=== PATIENT | male | born 1960 | race Caucasian/White ===

== ENCOUNTER → 2019-05-25 17:59 | Outpatient (CLI) | payer BC, SELFPAY ==
--- NOTE | ~2019-05-25 | XR_ITS ---
XR abdomen/kub 1V 05/25/2019 18:14 Indication: Bilateral kidney stones Procedure: KUB Comparison: Comparison to multiple prior studies sequentially, with oldest reviewed study dated 07/03. Findings: There are multiple left renal stones. Bowel pattern is nonobstructive. Lung bases unremarka ble. There is a right pelvic phlebolith. No acute osseous abnormality. Impression: 1: Left nephrolithiasis. Reviewed, dictated and finalized at location A. Impression: 1: Left nephrolithiasis.
== END ==
PROVIDERS: Visit Provider Urology
DX: N20.0 Calculus of kidney (principal)
CPT/HCPCS: 74018

== ENCOUNTER 2020-01-25 19:29 | Inpatient (IN) | payer BC, SELFPAY ==
--- NOTE | ~2020-01-25 | XR_ITS ---
EXAMINATION: XR abdomen/kub 1V DATE: 01/26/2020 11:07 INDICATION: Left renal stone. TECHNIQUE: A supine view of the abdomen on 2 radiographs was obtained. COMPARISON: CT abdomen and pelvis 01/25/2020 FINDINGS: There are no dilated loops of bowel. There is a left internal ureteral stent in expected po sition. There is a phlebolith in right pelvis. There are multiple ill-defined stones in left kidney. IMPRESSION: 1. Left kidney stones. 2. Left internal ureteral stent in expected position. Reviewed, dictated and finalized at location B. SIGMA BLACK TRAINER
--- NOTE | ~2020-01-25 | XR_ITS ---
EXAMINATION: XR retrograde pyelo w/stent LT INDICATION: Left flank pain and left ureteral stone TECHNIQUE: 84 intraoperative fluoroscopic images are submitted for review. Total fluoroscopic time is 76.8 seconds. COMPARISON: CT of the same day FINDINGS: There is mild left hydronephrosis. A left internal ureteral stent coils in the renal pelvis on the final sequence of images. IMPRESSION: 1. Left internal ureteral stent coiling in the left renal pelvis on final images. Please refer to pro cedure note for full details. Reviewed, dictated and finalized at location A. GRAM AND LETTER PASTER IMPRESSION: 1. Left internal ureteral stent coiling in the left renal pelvis on final image s. Please refer to procedure note for full details.
--- NOTE | ~2020-01-25 | CT_ITS ---
EXAMINATION: CT abdomen pelvis wo con DATE: 01/25/2020 20:34 INDICATION: Left flank pain TECHNIQUE: Computed tomography (CT) of the abdomen and pelvis was performed without intravenous contr ast. The dose-length product (DLP) was 300.21 mGy-cm. Automated exposure control and iterative recons truction technique were employed. COMPARISON: 12/14/2016 FINDINGS: Minimal dependent atelectasis is present in the lung bases. The heart size is normal. Chron ic, stable nodules of the medial left lower lobe are consistent with old granulomatous disease. The l iver, spleen, pancreas, gallbladder, and adrenal glands are normal. The right kidney is unremarkable. There is a 7 mm stone in the left proximal ureter which causes mild left hydronephrosis. Nonobstruct ing stones of the left kidney lower pole measure up to 6 mm. Cysts of the left kidney measure up to 3 .8 cm in the upper pole. No pathologically enlarged abdominal or pelvic lymph nodes are identified. T here is no free intraperitoneal gas or evidence of bowel obstruction. The appendix is normal. There i s mild lumbar spondylosis. There is mild wall thickening of the bladder which could reflect cystitis or chronic outlet obstruction. IMPRESSION: 1. 7 mm stone of the left proximal ureter causing mild left hydroureteronephrosis. 2. Nonobstructing left nephrolithiasis. Reviewed, dictated and finalized at location A. SIGNAL WORKER IMPRESSION: 1. 7 mm stone of the left proximal ureter causing mild left hydroureteronephros is. 2. Nonobstructing left nephrolithiasis.
[2020-01-25 19:39] VITALS: BP 115/69; PULSE 111; RESP 14; TEMP 36.4; O2SAT 97
[2020-01-25 19:55] LABS: Basophils Percent Auto 0.2 % (0.2-1.2); Hematocrit 41.1 % (42.0-52.0); Hemoglobin 14.4 g/dL (14.0-18.0); Immature Granulocyte Absolute 0.18 K/mm3 (0.00-0.031); Immature Granulocyte Percent A 0.8 % (0-0.5); Lymphocytes Percent Auto 3.1 % (18.3-44.2); Mean Corpuscular Hemoglobin 30.8 pg (26-34); Mean Platelet Volume 9.4 fl (7.4-10.4); Monocytes Absolute Auto 1.5 K/mm3 (0.1-0.6); Monocytes Percent Auto 6.5 % (2.6-8.5); Neutrophils Absolute Auto 20.4 K/mm3 (1.3-6.7); Neutrophils Percent Auto 89.4 % (45.5-73.1); Platelet Count Result 192 k/mm3 (150-375); Red Blood Count 4.67 M/mm3 (4.6-6.20); White Blood Count 22.8 K/mm3 (4.5-10.0)
[2020-01-25 20:05] LABS: Alanine Aminotransferase 19 U/L (4-50); Albumin Level 4.2 g/dL (3.5-5.1); Alkaline Phosphatase 68 U/L (38-126); Anion Gap 10 mmol/L (8-16); Aspartate Amino Transferase 25 U/L (17-59); Bilirubin,Total 1.1 mg/dL (0.2-1.3); Blood Urea Nitrogen 24 mg/dL (9-20); Calcium 9.1 mg/dL (8.4-10.2); Carbon Dioxide 22 mmol/L (22-30); Chloride 101 mmol/L (98-107); Estimated CRCL calculation 30 ml/min; Estimated Glomerular Filt Rate 24; Glucose 136 mg/dL (75-110); Lipase 45 U/L (23-300); Potassium 3.9 mmol/L (3.4-5.0); Sodium 133 mmol/L (137-145)
[2020-01-25 20:11] LABS: Add Urine Microscopic? YES; Appearance Urine Cloudy (Clear); Bacteria Urine Trace /hpf; Bilirubin Urine Negative (Negative); Blood Urine 3+ (Negative); Color Urine Yellow (Yellow); Glucose Urine UA Negative (Negative); Ketones Urine 1+ mg/dL (Negative); Leukocyte Esterase Ur 3+ LEU/UL (Negative); Mucus Urine Heavy /lpf; Nitrate Urine Negative (Negative); Protein Urine 2+ mg/dL (Negative); RBC Urine >75 /hpf (0-2); Specific Grav Ur 1.028 (1.001-1.035); Squamous Epithelial Cell Urine Rare /hpf (Few); Urobilinogen Urine Negative mg/dL (<2.0); WBC Clumps Urine Present /HPF; WBC Urine >75 /hpf
[2020-01-25] MEDS: SODIUM CHLORIDE 0.9% IV 1,000 ML 999 ML IV CONT (20:36)
--- NOTE | 2020-01-25 20:36 | ED.GENADULT ---
HPI - General Adult General Chief complaint: Urogenital-Male Stated complaint: pyelonephritis Time Seen by Provider: 01/25/20 19:59 History of Present Illness HPI narrative: Patient is a 59-year-old male who presents ER with left-sided flank pain. Began 2 days ago. Has been trying to tough it out. Reports he developed a fever today while [facility] and was referred here. No pain at this time. Reports he was having chills last night. He reports he also developed dysuria today. He has having urinary frequency. Has history of kidney stones. He was swabbed for Covid at the urgent care prior to arrival and it was negative. Related Data Home Medications Medication Instructions Recorded Confirmed testosterone cypionate 200 mg/mL 200 mg IM [id number] ml 07/24/19 01/25/20 intramuscular oil Allergies Allergy/AdvReac Type Severity Reaction Status Date / Time Cephalosporins Allergy Unknown Unknown Verified 01/25/20 20:54 Review of Systems Review of Systems: All systems reviewed & are unremarkable except as noted in HPI and below Constitutional: Constitutional: Reports chills, Reports fever(s) and Denies weakness ENT: Denies nasal congestion and Denies sore throat Respiratory: Respiratory: Denies cough and Denies dyspnea Gastrointestinal: Gastrointestinal: Denies abdominal pain, Denies nausea and Denies vomiting Genitourinary: Genitourinary: Reports dysuria and Reports urinary frequency [facility] Past Medical History Medical History (Updated 01/26/20 @ 02:01 by Moo Pepe MD) History of chemotherapy Testicular cancer Surgical History Surgical History History of orchiectomy [place] teeth removed Family History Family History Father Diabetes mellitus Hypertension Family history of cardiovascular disease Family history of coronary artery disease Mother Diabetes mellitus Hypertension Family history of cardiovascular disease Family history of coronary artery disease Grandparent Family history of cardiovascular disease Family history of pancreatic cancer Family history of primary malignant neoplasm of liver Other Family history of malignant neoplasm of breast in first degree relative Social History Social History Smoking status: Never smoker Second hand tobacco smoke exposure: No Smoking end date: 01/01/85 Alcohol intake: never Substance use: never Substance use type: does not use Gender identity (if verbalized by the patient): Male Spiritual care concerns: No Agree to blood products: Yes Exam Narrative: Exam Narrative: GENERAL: Well-appearing, well-nourished, and in no acute distress. HEAD: Normocephalic, atraumatic. CHEST: Clear to auscultation. No respiratory distress. HEART: Regular rate and rhythm. Normal peripheral pulses. ABDOMEN: Soft, nontender, nondistended. EXTREMITIES: Normal range of motion. No edema. SKIN: Warm, dry, no rash. NEURO: Alert and oriented x3. PSYCH: Normal mood and affect. Course Course Emergency Course: Patient will go to the OR this evening with urology. Patient received Levaquin x1 down here. He is to remain n.p.o. Vital Signs Vital signs: Vital Signs Temperature 97.5 F L 01/25/20 19:39 Pulse Rate 111 H 01/25/20 19:39 Respiratory Rate 14 01/25/20 19:39 Blood Pressure 115/69 01/25/20 19:39 Pulse Oximetry 97 01/25/20 19:39 Temperature 98.0 F 01/26/20 01:15 Pulse Rate 99 01/26/20 01:15 Respiratory Rate 20 01/26/20 01:15 Blood Pressure 108/65 01/26/20 01:15 Pulse Oximetry 97 01/26/20 01:15 Medical Decision Making Vital Signs Vital Signs: Vital Signs Temperature 97.5 F L 01/25/20 19:39 Pulse Rate 111 H 01/25/20 19:39 Respiratory Rate 14 01/25/20 19:39 Blood Pressure 115/69 01/25/20 19:39 Pulse Oxim
[2020-01-25 21:03] LABS: Lactic Acid Reflex 1.2 mmol/L (0.7-2.1)
[2020-01-25] MEDS: levoFLOXacin 500 MG/D5W 100 ML 500 MG/100 ML BAG 100 MG IVPB (21:30)
--- NOTE | 2020-01-25 22:06 | WPDURCON ---
Assessment and Plan Assessment and plan (1) Calculus of ureter: Code(s): N20.1 - Calculus of ureter Status: Acute Assessment and Plan: 59 yo male with left 7 mm ureter stone, hydro and infection POA #1 ureter stone plan on emergent cysto RPG and left stent placement. risks/benefit/nature of procedure and complications reviewed. risks including but not limited to bleeding, infection, trauma to surrounding structures need for definitive stone therapy in the future, the side effects and temporary nature of the stent were emphasized (irritative voiding symptoms , pain similar to stone pain), in addition to anesthesia and positioning complications of [place], stroke, DVT, PE, disability and other unforeseen complications were reviewed. Furthermore we reviewed small risk of inability to place stent and need for PCN by IR. He voiced understanding, all ? answered to his satisfaction in layman's terms (2) UTI (urinary tract infection): Code(s): N39.0 - Urinary tract infection, site not specified Status: Acute Assessment and Plan: on levaquin, dose renally q 48 hours (3) Hydronephrosis concurrent with and due to calculi of kidney and ureter: Code(s): N13.2 - Hydronephrosis with renal and ureteral calculous obstruction Status: Acute Assessment and Plan: he will need definitive stone therapy after infection has cleared (4) MERE (acute kidney injury): Code(s): N17.9 - Acute kidney failure, unspecified Status: Acute Assessment and Plan: likely due to obstruction, infection and NSAID's avoid nephrotoxins, trend serial Cr Urology Consult Note HPI Date Seen: 01/25/20 Primary Care Provider: ROLL RECLAIMER PHYSICIAN Consult Narrative Narrative: Dominic Betts is a 59 year old male with history or kidney stones(normally sees Dr High), who presents to ER after going to [facility] with abdominal pain, fever and chills. Pt with fever of 101 at home. + nausea, no vomiting. he had pain that started in the left kidney 3 days prior, which improved with Tylenol and ibuprofen. No hematuria, + dysuria. he has cephalosporin allergy which causes c diff and diarrhea. He had a CT in the ER which showed 7 mm left prox ureter stones and hydro, some non obs left renal stones as well. Cr elevated at 2.7 and wbc 22. Review of Systems Constitutional: Constitutional: Reports no additional constitutional complaints, Reports fever(s), Denies snoring and Denies weakness Eyes: Eyes: Reports no additional eye complaints ENT: Reports system reviewed and no additional complaints, except as documented, Denies dysphagia, Denies dizziness, Denies dry mouth and Denies ear discharge Respiratory: Respiratory: Reports no additional respiratory complaints, Denies hemoptysis, Denies snoring and Denies wheezing Gastrointestinal: Gastrointestinal: Reports as per HPI, Reports no additional gastrointestinal complaints, Denies dysphagia, Denies loose stools and Denies nausea Genitourinary: Genitourinary: Reports no additional male genitourinary complaints and Reports as per HPI Musculoskeletal: Musculoskeletal: Reports no additional musculoskeletal complaints and Reports as per HPI Integumentary/Breasts: Skin/Breast: Reports system reviewed and no additional complaints, except as docu and Reports as per HPI Neurologic: Reports system reviewed and no additional complaints, except as documented, Reports as per HPI, Denies confusion, Denies dizziness, Denies memory loss and Denies weakness Psychiatric: Psychiatric: Reports no additional psychiatric complaints, Reports as per HPI, Denies confusion, Denies memory loss and Denies mood swings Endocrine: Endocrine: Reports no additional endocrine complaints Hematologic/Lymphatic: Hematologic/Lymphatic: Reports no additional hematologic/lymphatic complaints and Reports as per HPI Allergic/Immunologic: Allergic/Immunologic: Reports no additional allergic/immunologic comp
--- NOTE | 2020-01-25 22:21 | WPDANESEPP ---
Anes - Eval Pre Procedure Procedure: Operation Date: 01/25/20 22:15 Proposed Procedures p Cystoscopy, Bladder Stones(Left) - Jayjay Moore MD Date/Time: 01/25/20 22:21 Pre Op Diagnosis: pyelonephritis Patient Data Age: 59 Gender: M Height: 1.83 m Weight: 96 kg Last Vital Signs Temp 36.4 C L 01/25/20 19:39 Pulse 111 H 01/25/20 19:39 Resp 14 01/25/20 19:39 BP 115/69 01/25/20 19:39 Pulse Ox 97 01/25/20 19:39 Allergies Allergy/AdvReac Type Severity Reaction Status Date / Time Cephalosporins Allergy Unknown Unknown Verified 01/25/20 20:54 Home Medications Medication Instructions Recorded Confirmed Type blood pressure monitor #1 each 06/11/19 07/24/19 Rx testosterone cypionate 200 mg/mL 200 mg IM [id number] ml 07/24/19 01/25/20 History intramuscular oil lisinopril 20 mg tablet 20 mg PO DAILY #90 tablet 08/04/19 01/25/20 Rx Laboratory Tests 01/25/20 01/25/20 01/25/20 19:46 19:46 19:57 WBC 22.8 K/mm3 H K/mm3 (4.5-10.0) RBC 4.67 M/mm3 M/mm3 (4.6-6.20) Hgb 14.4 g/dL g/dL (14.0-18.0) Hct 41.1 % L % (42.0-52.0) MCV 88.0 fl fl (80-100) MCH 30.8 pg pg (26-34) MCHC 35.0 g/dl g/dl (32-36) RDW 12.0 % % (11.5-14.5) Plt Count 192 k/mm3 k/mm3 (150-375) MPV 9.4 fl fl (7.4-10.4) Immature Gran % (Auto) 0.8 % H % (0-0.5) Neut % (Auto) 89.4 % H % (45.5-73.1) Lymph % (Auto) 3.1 % L % (18.3-44.2) [place] % (Auto) 6.5 % % (2.6-8.5) Eos % (Auto) 0.0 % % (0-4.4) Baso % (Auto) 0.2 % % (0.2-1.2) Lymph # (Auto) 0.70 K/mm3 L K/mm3 (0.9-3.2) [place] # (Auto) 1.5 K/mm3 H K/mm3 (0.1-0.6) Eos # (Auto) 0.0 K/mm3 K/mm3 (0-0.3) Baso # (Auto) 0.0 K/mm3 K/mm3 (0.0-0.1) Abs Immat Gran (auto) 0.18 K/mm3 H K/mm3 (0.00-0.031) Absolute Neuts (auto) 20.4 K/mm3 H K/mm3 (1.3-6.7) Absolute Nucleated RBC 0.0 K/mm3 K/mm3 (0.0-0.012) Nucleated RBC % 0.0 % % (0.0-0.2) Sodium 133 mmol/L L mmol/L (137-145) Potassium 3.9 mmol/L mmol/L (3.4-5.0) Chloride 101 mmol/L mmol/L (98-107) Carbon Dioxide 22 mmol/L mmol/L (22-30) Anion Gap 10 mmol/L mmol/L (8-16) BUN 24 mg/dL H mg/dL (9-20) Creatinine 2.70 mg/dL H mg/dL (0.7-1.3) Estim Creat Clear Calc 30 ml/min ml/min Estimated GFR 24 L (59 - ) Glucose 136 mg/dL H mg/dL (75-110) Lactic Acid Calcium 9.1 mg/dL mg/dL (8.4-10.2) Total Bilirubin 1.1 mg/dL mg/dL (0.2-1.3) AST 25 U/L U/L (17-59) ALT 19 U/L U/L (4-50) Alkaline Phosphatase 68 U/L U/L (38-126) Total Protein 7.0 g/dL g/dL (6.3-8.2) Albumin 4.2 g/dL g/dL (3.5-5.1) Lipase 45 U/L U/L (23-300) Urine Color Yellow (Yellow) Urine Appearance Cloudy H (Clear) Urine pH 5.0 (5.0-9.0) Ur Specific [place] 1.028 (1.001-1.035) Urine Protein 2+ mg/dL H mg/dL (Negative) Urine Glucose (UA) Negative mg/dL mg/dL (Negative) Urine Ketones 1+ mg/dL H mg/dL (Negative) Ur Blood (Man) 3+ H (Negative) Urine Nitrate Negative (Negative) Urine Bilirubin Negative (Negative) Urine Urobilinogen Negative mg/dL mg/dL (<2.0) Leukocyte Esterase Rfl 3+ LUIS/UL H LUIS/UL (Negative) Urine RBC >75 /hpf H /hpf (0-2) Urine WBC >75 /hpf H /hpf Urine WBC Clumps Present /HPF H /HPF (None) Ur Squamous Epith Cells Rare /hpf /hpf (Few) Urine Bacteria Trace /hpf /hpf Urine Mucus Heavy /lpf H /lpf 01/25/20 20:47 WBC RBC Hgb Hct MCV
[2020-01-25 22:25] VITALS: BP 134/78; PULSE 125; RESP 18; TEMP 38.1; O2SAT 100
--- NOTE | 2020-01-25 22:40 | WPDANESEPPF ---
Anes - Initial Pre Proc Eval Procedure: Operation Date: 01/25/20 22:15 Proposed Procedures p Cystoscopy, Bladder Stones(Left) - Jayjay Moore MD Date/Time: 01/25/20 22:40 Surgeon: Jayjay Moore MD Pre Op Diagnosis: pyelonephritis Patient Data Age: 59 Gender: M Height: 6 ft Weight: 96 kg Last Vital Signs Temp 38.1 C H 01/25/20 22:25 Pulse 125 H 01/25/20 22:25 Resp 18 01/25/20 22:25 BP 134/78 01/25/20 22:25 Pulse Ox 100 01/25/20 22:25 Allergies Allergy/AdvReac Type Severity Reaction Status Date / Time Cephalosporins Allergy Unknown Unknown Verified 01/25/20 20:54 Home Medications Medication Instructions Recorded Confirmed Type blood pressure monitor #1 each 06/11/19 07/24/19 Rx testosterone cypionate 200 mg/mL 200 mg IM [id number] ml 07/24/19 01/25/20 History intramuscular oil lisinopril 20 mg tablet 20 mg PO DAILY #90 tablet 08/04/19 01/25/20 Rx Laboratory Tests 01/25/20 01/25/20 01/25/20 19:46 19:46 19:57 WBC 22.8 K/mm3 H K/mm3 (4.5-10.0) RBC 4.67 M/mm3 M/mm3 (4.6-6.20) Hgb 14.4 g/dL g/dL (14.0-18.0) Hct 41.1 % L % (42.0-52.0) MCV 88.0 fl fl (80-100) MCH 30.8 pg pg (26-34) MCHC 35.0 g/dl g/dl (32-36) RDW 12.0 % % (11.5-14.5) Plt Count 192 k/mm3 k/mm3 (150-375) MPV 9.4 fl fl (7.4-10.4) Immature Gran % (Auto) 0.8 % H % (0-0.5) Neut % (Auto) 89.4 % H % (45.5-73.1) Lymph % (Auto) 3.1 % L % (18.3-44.2) [place] % (Auto) 6.5 % % (2.6-8.5) Eos % (Auto) 0.0 % % (0-4.4) Baso % (Auto) 0.2 % % (0.2-1.2) Lymph # (Auto) 0.70 K/mm3 L K/mm3 (0.9-3.2) [place] # (Auto) 1.5 K/mm3 H K/mm3 (0.1-0.6) Eos # (Auto) 0.0 K/mm3 K/mm3 (0-0.3) Baso # (Auto) 0.0 K/mm3 K/mm3 (0.0-0.1) Abs Immat Gran (auto) 0.18 K/mm3 H K/mm3 (0.00-0.031) Absolute Neuts (auto) 20.4 K/mm3 H K/mm3 (1.3-6.7) Absolute Nucleated RBC 0.0 K/mm3 K/mm3 (0.0-0.012) Nucleated RBC % 0.0 % % (0.0-0.2) Sodium 133 mmol/L L mmol/L (137-145) Potassium 3.9 mmol/L mmol/L (3.4-5.0) Chloride 101 mmol/L mmol/L (98-107) Carbon Dioxide 22 mmol/L mmol/L (22-30) Anion Gap 10 mmol/L mmol/L (8-16) BUN 24 mg/dL H mg/dL (9-20) Creatinine 2.70 mg/dL H mg/dL (0.7-1.3) Estim Creat Clear Calc 30 ml/min ml/min Estimated GFR 24 L (59 - ) Glucose 136 mg/dL H mg/dL (75-110) Lactic Acid Calcium 9.1 mg/dL mg/dL (8.4-10.2) Total Bilirubin 1.1 mg/dL mg/dL (0.2-1.3) AST 25 U/L U/L (17-59) ALT 19 U/L U/L (4-50) Alkaline Phosphatase 68 U/L U/L (38-126) Total Protein 7.0 g/dL g/dL (6.3-8.2) Albumin 4.2 g/dL g/dL (3.5-5.1) Lipase 45 U/L U/L (23-300) Urine Color Yellow (Yellow) Urine Appearance Cloudy H (Clear) Urine pH 5.0 (5.0-9.0) Ur Specific [place] 1.028 (1.001-1.035) Urine Protein 2+ mg/dL H mg/dL (Negative) Urine Glucose (UA) Negative mg/dL mg/dL (Negative) Urine Ketones 1+ mg/dL H mg/dL (Negative) Ur Blood (Man) 3+ H (Negative) Urine Nitrate Negative (Negative) Urine Bilirubin Negative (Negative) Urine Urobilinogen Negative mg/dL mg/dL (<2.0) Leukocyte Esterase Rfl 3+ LUIS/UL H LUIS/UL (Negative) Urine RBC >75 /hpf H /hpf (0-2) Urine WBC >75 /hpf H /hpf Urine WBC Clumps Present /HPF H /HPF (None) Ur Squamous Epith Cells Rare /hpf /hpf (Few) Urine Bacteria Trace /hpf /hpf Urine Mucus Heavy /lpf H /lpf 01/25/20 20:47 WBC RBC
--- NOTE | 2020-01-25 23:13 | P.OP_ITS ---
Procedure Note - Detailed Date of procedure: 01/25/20 Pre-op diagnosis: pyelonephritis Surgeon: Jayjay Moore MD Preoperative diagnosis: left ureter stone, renal failure, UTI, hydronephrosis Postoperative diagnosis: same Procedure: cystoscopy, left retrograde pyelogram, left ureter stent placement specimens: left renal pelvis urien for culture Findings: expected implants: left 6 fr variable length stent EBL: none Drains: 16 Fr almonte Description of procedure: Patient was brought back to to the OR, he was given general anesthesia via LMA. He was prepped and draped in standard fashion in the dorsal lithotomy position with Betadine to the genitalia. He received preoperative IV antibiotics. After appropriate time out, oceanic sciences professor fluoroscopy was obtained and showed stone in left mid ureter. 22 Fr cystoscope was placed into the urethra, prostate was mildly enlarged, endoscopy of the bladder revealed dark urine, no tumors , lesions, masses or stones seen in the bladder. He had single orthotopic ureter orifices. 5 Fr open ended cath was inserted into the left ureteral orifice and a Bentson wire was navigated past the stone under fluoroscopy. 5 Fr cath advanced to the renal pelvis and a hydronephrotic drip of urine was obtained. this was sent off the field for culture. A gentle retrograde pyelogram was obtained showing the outline of the collecting system, and moderate hydronephrosis. Bentson wire was replaced, and a 6 Fr variable length stent was placed, good curl was seen both fluoroscopically in the kidney and both fluoroscopically and endoscopically in the bladder. 16 Fr Almonte was placed to maximally drain his urinary system. He was awoken and transferred to recovery in guarded condition. His family was notified via telephone. he will be admitted to the ICU/IMCU given his pressor requirement. He will require stone treatment in the future when his infection has cleared.
[2020-01-25 23:17] VITALS: BP 94/56; PULSE 101; RESP 20; TEMP 36.9; O2SAT 99
[2020-01-25] MEDS: LACTATED RINGERS 1,000 ML 30 ML IV CONT ×2 (23:17)
[2020-01-25 23:30] VITALS: BP 102/59; PULSE 98; RESP 16; O2SAT 100
[2020-01-25 23:45] VITALS: BP 101/62; PULSE 104; RESP 14; O2SAT 100
[2020-01-26] VITALS (22 sets, daily range): BP systolic 91–130; BP diastolic 49–80; PULSE 95–123; RESP 14–20; TEMP 36.3–39.2; O2SAT 96–99; BMI 29.2
--- NOTE | 2020-01-26 01:35 | ADMGEN ---
This patient, Dominic Betts, was admitted to IMU Room 202-. Patient/family oriented to hospital policies and general routines including ID bracelet, bed and alarms, visiting hours, pain management, procedures, bathroom and other care routines, personal items, smoking policy, room service/diet, and visiting hours. Information on how to activate the Rapid Response Team has been discussed. Patient/Family are encouraged to report perceived risks to care and to ask questions if they do not understand what they are told or what they should do.
[2020-01-26 04:55] LABS: Hematocrit 36.4 % (42.0-52.0); Hemoglobin 12.6 g/dL (14.0-18.0)
[2020-01-26 05:13] LABS: Anion Gap 7 mmol/L (8-16); Blood Urea Nitrogen 29 mg/dL (9-20); Calcium 8.1 mg/dL (8.4-10.2); Carbon Dioxide 24 mmol/L (22-30); Chloride 102 mmol/L (98-107); Estimated CRCL calculation 31 ml/min; Estimated Glomerular Filt Rate 25; Glucose 172 mg/dL (75-110); Potassium 4.1 mmol/L (3.4-5.0); Sodium 133 mmol/L (137-145)
[2020-01-26] MEDS: ONDANSETRON INJ 4 MG/2 ML VIAL IV PUSH ×2 (06:49→17:51)
--- NOTE | 2020-01-26 10:01 | WPDUROPN2 ---
Progress Note: A&P Assessment and Plan (1) Ureterolithiasis: Code(s): N20.1 - Calculus of ureter Status: Acute Assessment and Plan: Will plan definitive stone management once infection has cleared as an outpatient. No further surgical planning at this time. Obtain KUB for surgcial planning. (2) UTI (urinary tract infection): Code(s): N39.0 - Urinary tract infection, site not specified Status: Acute Assessment and Plan: Started Bactrim, will continue and tailor to culture results. Patient will stay until cultures are back, will continue to monitor. (3) Calculus of ureter: Code(s): N20.1 - Calculus of ureter Status: Acute (4) Hypertension: Qualifiers: Hypertension type: essential hypertension Qualified Code(s): I10 - Essential (primary) hypertension Code(s): I10 - Essential (primary) hypertension Status: Acute Assessment and Plan: Patient is hypotensive at this time, will continue to hold Lisinopril. Push oral fluids. (5) Hydronephrosis concurrent with and due to calculi of kidney and ureter: Code(s): N13.2 - Hydronephrosis with renal and ureteral calculous obstruction Status: Acute Assessment and Plan: Keep stent in place at this time until follow up surgery. Paitent is having stent pain and bladder spasms. Ok to give Levsin PRN. Will plan to remove almonte and do voiding trial before he leaves. (6) MERE (acute kidney injury): Code(s): N17.9 - Acute kidney failure, unspecified Status: Acute Assessment and Plan: Improving slowly, will watch, stent is in place and will help to improve MERE. (7) Nausea: Code(s): R11.0 - Nausea Status: Acute Assessment and Plan: Take Ondansetron PRN. Subjective Subjective Date/Time Seen: 01/26/20 10:01 POD #1 Cystoscopy, left stent placement, retrograde pyelogram Review of Systems Cardiovascular: Cardiovascular: Denies chest pain Gastrointestinal: Gastrointestinal: Reports abdominal pain (stent pain), Reports nausea and Denies vomiting Genitourinary: Genitourinary: Reports hematuria, Denies genital pain, Denies dysuria and Reports flank pain Exam Resp: Effort & Inspection: normal respiratory effort Cardio: Rate: tachycardic GI: GI Palp: Yes abdominal tenderness and Yes Soft to palpation : General: Yes CVA tenderness on the left Urinary Catheter: Urinary Catheter: patent and draining, urine cloudy, urine dark and urine pink Extrem: General: no edema Objective Data Vital Signs Vital Signs: Vital Signs - 24 hr 01/25/20 19:39 01/25/20 22:25 01/25/20 23:17 Temperature 97.5 F L 100.6 F H 98.4 F Pulse Rate 111 H 125 H 101 H Respiratory Rate 14 18 20 Blood Pressure 115/69 134/78 94/56 L Pulse Oximetry 97 100 99 01/25/20 23:30 01/25/20 23:45 01/26/20 00:00 Temperature Pulse Rate 98 104 H 107 H Respiratory Rate 16 14 14 Blood Pressure 102/59 L 101/62 109/67 Pulse Oximetry 100 100 97 01/26/20 00:15 01/26/20 00:30 01/26/20 00:45 Temperature 98.9 F 98.9 F Pulse Rate 101 H 106 H 97 Respiratory Rate 18 15 20 Blood Pressure 107/65 111/71 130/80 Pulse Oximetry 96 97 97 01/26/20 01:15 01/26/20 02:00 01/26/20 04:00 Temperature 98.0 F Pulse Rate 99 104 H 115 H Respiratory Rate 20 20 Blood Pressure 108/65 Pulse Oximetry 97 97 01/26/20 04:41 01/26/20 06:00 01/26/20 07:04 Temperature 98.8 F 97.8 F Pulse Rate 115 H 120 H 123 H Respiratory Rate 20 20 Blood Pressure 98/49 L 91/49 L Pulse Oximetry 98 99 Intake/Output Intake/Output: Intake & Output 01/23/20 01/24/20 01/25/20 01/26/20 23:59 23:59 23:59 23:59 Intake Total 1165 1450 Output Total 25 450 Balance 1140 1000 Meds/Results Medications: Active Medications Generic Name Dose Route Start Last Admin Trade Name Freq PRN Reason Stop Dose Admin Docusate Sodium 100 mg 01/26/20 09:00 01/26/20 08:57 Docusate Sodium 100 Mg
[2020-01-26] MEDS: HYDROcodone/acetaminophen (*CRX) 5-325 MG TABLET 1 TAB PO (11:23)
--- NOTE | 2020-01-26 14:22 | PC.NURSE ---
This patient, Dominic Betts, was received from IMU on 01/26/20 at 1422. Patient/family oriented to unit policies and routines
[2020-01-26] MEDS: LACTATED RINGERS 1,000 ML 100 ML IV CONT ×2 (14:23→23:58)
--- NOTE | 2020-01-26 14:28 | PC.NURSE ---
This patient, Dominic Betts, was transferred to [facility] on 01/26/20 at 1428. Personal belongings sent with patient. Report given to FARHEEN Saenz. Appropriate documentation sent with patient.
[2020-01-26] MEDS: ACETAMINOPHEN 500 MG TABLET PO (14:54)
[2020-01-26] MEDS: ACETAMINOPHEN 500 MG TABLET 1000 MG PO ×2 (17:51→23:51)
[2020-01-26] MEDS: LORATADINE 10 MG TABLET PO (23:51)
[2020-01-27] VITALS (9 sets, daily range): BP systolic 107–140; BP diastolic 65–76; PULSE 85–110; RESP 18–20; TEMP 36.4–37.7; O2SAT 98–100
[2020-01-27] MEDS: ONDANSETRON INJ 4 MG/2 ML VIAL IV PUSH (04:23)
[2020-01-27] MEDS: ACETAMINOPHEN 500 MG TABLET 1000 MG PO ×2 (06:11→13:18)
[2020-01-27] MEDS: LACTATED RINGERS 1,000 ML 125 ML IV CONT (08:17)
--- NOTE | 2020-01-27 10:28 | WPDUROPN2 ---
Progress Note: A&P Assessment and Plan (1) Ureterolithiasis: Code(s): N20.1 - Calculus of ureter Status: Acute Assessment and Plan: Stent in place, patient tolerating stent well. (2) MERE (acute kidney injury): Code(s): N17.9 - Acute kidney failure, unspecified Status: Acute Assessment and Plan: Creatinine was slightly better yesterday, will re-check creatinine today. (3) Hydronephrosis concurrent with and due to calculi of kidney and ureter: Code(s): N13.2 - Hydronephrosis with renal and ureteral calculous obstruction Status: Acute (4) UTI (urinary tract infection): Code(s): N39.0 - Urinary tract infection, site not specified Status: Acute Assessment and Plan: Culture is growing Enterococcus, will wait for susceptibility report and continue Levaquin until then. (5) Calculus of ureter: Code(s): N20.1 - Calculus of ureter Status: Acute Assessment and Plan: BP has improved after restarting IV fluids, will hold IV fluids at this time d/t stable BP. Continue Tylenol for pain and fever. Will determine discharge based on culture results, fever status and creatinine level. KUB was repeated yesterday s/p stent placement showing the stone back into the kidney and no longer in the UPJ as seen previosuly. Will plan to schedule an outpatient ESWL once infection has cleared. Subjective Subjective Date/Time Seen: 01/27/20 10:28 POD #2 Cystoscopy, left stent placement, retrograde pyelogram Difficulty with fever, chills, diaphoresis and hypotension overnight, but BP has improved with IV fluids and fever is now controlled with Tylenol. Review of Systems Cardiovascular: Cardiovascular: Denies chest pain Respiratory: Respiratory: Reports no additional respiratory complaints Gastrointestinal: Gastrointestinal: Denies abdominal pain, Denies nausea and Denies vomiting Genitourinary: Genitourinary: Denies hematuria and Denies flank pain Exam Resp: Effort & Inspection: normal respiratory effort Cardio: Rate: tachycardic GI: GI Palp: Yes Soft to palpation and No Tenderness to palpation present (GI) : General: Yes no CVA tenderness Urinary Catheter: Urinary Catheter: patent and draining and urine clear Extrem: General: no edema Objective Data Vital Signs Vital Signs: Vital Signs - 24 hr 01/26/20 11:26 01/26/20 12:00 01/26/20 14:47 Temperature 102.5 F H 101.9 F H 102 F H Pulse Rate 120 H 107 H Respiratory Rate 18 15 Blood Pressure 99/57 L 103/59 L Pulse Oximetry 96 97 01/26/20 14:54 01/26/20 15:54 01/26/20 16:03 Temperature 102 F H 99.6 F 99.6 F Pulse Rate Respiratory Rate Blood Pressure Pulse Oximetry 01/26/20 17:51 01/26/20 18:50 01/26/20 19:45 Temperature 99.9 F H 102.2 F H 99.2 F Pulse Rate Respiratory Rate Blood Pressure Pulse Oximetry 01/26/20 20:00 01/26/20 23:56 01/27/20 04:00 Temperature 97.4 F L 97.6 F 99.3 F Pulse Rate 103 H 95 104 H Respiratory Rate 18 20 20 Blood Pressure 96/55 L 130/68 140/76 Pulse Oximetry 97 98 100 01/27/20 08:19 Temperature 98.3 F Pulse Rate Respiratory Rate Blood Pressure Pulse Oximetry Intake/Output Intake/Output: Intake & Output 01/24/20 01/25/20 01/26/20 01/27/20 23:59 23:59 23:59 23:59 Intake Total 1165 3350 1590 Output Total 25 1575 1150 Balance 1140 1775 440 Meds/Results Medications: Active Medications Generic Name Dose Route Start Last Admin Trade Name Freq PRN Reason Stop Dose Admin Acetaminophen 1,000 mg 01/26/20 15:59 01/27/20 06:11 Acetaminophen 500 Mg Tablet PO 1,000 mg Q6HR PRN Administration Mild Pain (1-3) or Fever Hydrocodone Bitart/Acetaminophen 1 tab 01/26/20 10:46 01/26/20 11:23 Hydrocodone/Acetaminophen (*Crx) 5-325 Mg Tablet PO 1 tab Q4H PRN Administration Pain Rated 4-6 Docusate Sodium 100 mg 01/26/20 09:00 01/27/20 08:21 Docusate Sodium 100 Mg Capsule PO
[2020-01-27] MEDS: HYOSCYAMINE SULFATE 0.125 MG TABLET PO (11:08)
[2020-01-27 12:42] LABS: Hematocrit 39.6 % (42.0-52.0); Hemoglobin 13.8 g/dL (14.0-18.0); Mean Corpuscular HGB Conc 34.8 g/dl (32-36); Mean Corpuscular Hemoglobin 31.7 pg (26-34); Mean Corpuscular Volume 90.8 fl (80-100); Mean Platelet Volume 9.8 fl (7.4-10.4); Platelet Count Result 153 k/mm3 (150-375); Red Blood Count 4.36 M/mm3 (4.6-6.20); Red Cell Distribution Width 12.2 % (11.5-14.5); White Blood Count 16.5 K/mm3 (4.5-10.0)
[2020-01-27 12:52] LABS: Potassium 3.9 mmol/L (3.4-5.0)
[2020-01-27 12:55] LABS: Anion Gap 11 mmol/L (8-16); Blood Urea Nitrogen 22 mg/dL (9-20); Calcium 8.6 mg/dL (8.4-10.2); Carbon Dioxide 24 mmol/L (22-30); Chloride 101 mmol/L (98-107); Estimated CRCL calculation 40 ml/min; Estimated Glomerular Filt Rate 34; Glucose 96 mg/dL (75-110); Sodium 136 mmol/L (137-145)
[2020-01-27] MEDS: NITROFURANTOIN MONOHYD MACROCR 100 MG CAP PO ×2 (16:38→20:33)
[2020-01-27] MEDS: PHARMACIST COMMUNICATION ORDER 1 EACH XX (16:38)
[2020-01-28] MEDS: ONDANSETRON INJ 4 MG/2 ML VIAL IV PUSH ×2 (01:47→07:58)
[2020-01-28 02:00] VITALS: BP 128/64; PULSE 94; RESP 20; TEMP 37; O2SAT 99
[2020-01-28 05:43] LABS: Hematocrit 35.9 % (42.0-52.0); Hemoglobin 12.8 g/dL (14.0-18.0); Mean Corpuscular HGB Conc 35.7 g/dl (32-36); Mean Corpuscular Hemoglobin 30.7 pg (26-34); Mean Corpuscular Volume 86.1 fl (80-100); Mean Platelet Volume 10.1 fl (7.4-10.4); Platelet Count Result 177 k/mm3 (150-375); Red Blood Count 4.17 M/mm3 (4.6-6.20); Red Cell Distribution Width 11.9 % (11.5-14.5); White Blood Count 13.2 K/mm3 (4.5-10.0)
[2020-01-28 06:00] VITALS: BP 136/81; PULSE 85; RESP 21; TEMP 36.8; O2SAT 100
[2020-01-28 07:12] LABS: Anion Gap 9 mmol/L (8-16); Blood Urea Nitrogen 24 mg/dL (9-20); Calcium 8.1 mg/dL (8.4-10.2); Carbon Dioxide 23 mmol/L (22-30); Chloride 102 mmol/L (98-107); Estimated CRCL calculation 49 ml/min; Estimated Glomerular Filt Rate 44; Glucose 104 mg/dL (75-110); Potassium 3.7 mmol/L (3.4-5.0); Sodium 134 mmol/L (137-145)
[2020-01-28] MEDS: NITROFURANTOIN MONOHYD MACROCR 100 MG CAP PO (08:59)
--- NOTE | 2020-01-28 09:04 | WPDUROPN2 ---
Progress Note: A&P Assessment and Plan (1) Ureterolithiasis: Code(s): N20.1 - Calculus of ureter Status: Acute Assessment and Plan: Will plan to schedule definitive outpatient stone management after negative urine culture next week and repat KUB. (2) MERE (acute kidney injury): Code(s): N17.9 - Acute kidney failure, unspecified Status: Acute Assessment and Plan: Improved, creatinine is at 1.60 today down from 2.0 yesterday, WBC is also improved today to 13.2. (3) UTI (urinary tract infection): Code(s): N39.0 - Urinary tract infection, site not specified Status: Acute Assessment and Plan: OK to discharge home with oral NItrofurantoin, finish all antibiotics. (4) Calculus of ureter: Code(s): N20.1 - Calculus of ureter Status: Acute Assessment and Plan: Repeat KUB in one week. Subjective Subjective Date/Time Seen: 01/28/20 09:04 POD #3 Cystoscopy, left stent placement, retrograde pyelogram Difficulty with fever, chills, diaphoresis and hypotension yesterday, but BP has improved with IV fluids and he is afebrile as of last night without Tylenol, after starting appropriate antibiotics. Review of Systems Cardiovascular: Cardiovascular: Denies chest pain Respiratory: Respiratory: Reports no additional respiratory complaints Gastrointestinal: Gastrointestinal: Denies abdominal pain, Denies nausea and Denies vomiting Genitourinary: Genitourinary: Denies hematuria, Denies dysuria, Denies flank pain, Denies urinary frequency and Denies urinary hesitancy Exam Resp: Effort & Inspection: normal respiratory effort Cardio: Rate: regular rate GI: GI Palp: Yes Soft to palpation and No Tenderness to palpation present (GI) Extrem: General: no edema Objective Data Vital Signs Vital Signs: Vital Signs - 24 hr 01/27/20 11:07 01/27/20 13:18 01/27/20 14:00 Temperature 97.5 F L 100 F H 99.0 F Pulse Rate 102 H Respiratory Rate 20 Blood Pressure 114/65 Pulse Oximetry 98 01/27/20 15:17 01/27/20 18:00 01/27/20 20:00 Temperature 98.6 F 97.9 F Pulse Rate 85 Respiratory Rate 18 Blood Pressure 107/67 Pulse Oximetry 100 100 01/27/20 22:00 01/28/20 02:00 01/28/20 06:00 Temperature 99.5 F 98.6 F 98.3 F Pulse Rate 110 H 94 85 Respiratory Rate 20 20 21 H Blood Pressure 133/75 128/64 136/81 Pulse Oximetry 99 99 100 Intake/Output Intake/Output: Intake & Output 01/25/20 01/26/20 01/27/20 01/28/20 23:59 23:59 23:59 23:59 Intake Total 1165 3350 2239 800 Output Total 25 1575 1600 4 Balance 1140 1775 639 796 Meds/Results Medications: Active Medications Generic Name Dose Route Start Last Admin Trade Name Freq PRN Reason Stop Dose Admin Acetaminophen 1,000 mg 01/26/20 15:59 01/27/20 13:18 Acetaminophen 500 Mg Tablet PO 1,000 mg Q6HR PRN Administration Mild Pain (1-3) or Fever Hydrocodone Bitart/Acetaminophen 1 tab 01/26/20 10:46 01/26/20 11:23 Hydrocodone/Acetaminophen (*Crx) 5-325 Mg Tablet PO 1 tab Q4H PRN Administration Pain Rated 4-6 Docusate Sodium 100 mg 01/26/20 09:00 01/28/20 08:58 Docusate Sodium 100 Mg Capsule PO Not Given BID NEIL Hyoscyamine 0.125 mg 01/26/20 09:59 01/27/20 11:08 Hyoscyamine Sulfate 0.125 Mg Tablet PO 0.125 mg Q4H PRN Administration Bladder Spasm Lactated Ringer's 1,000 mls @ 125 mls/hr 01/26/20 12:05 01/27/20 18:11 Lr - Lactated Ringers Iv IV CONT Infused .Q8H NEIL Infusion Loratadine 10 mg 01/26/20 20:02 01/26/20 23:51 Loratadine 10 Mg Tablet PO 10 mg DAILY PRN Administration SINUS ALLERGIES Naloxone HCl 0.1 mg 01/26/20 00:22 Naloxone Hcl 0.4 Mg/Ml Vial IV PUSH Q2M PRN Opiate Reversal Nitrofurantoin Macrocrystals 100 mg 01/27/20 14:00 01/28/20 08:59 Nitrofurantoin Monohyd Macrocr 100 Mg Cap PO 100 mg Q12HR NEIL Administration Ondansetron HCl 4 mg 01/26/20 08:53 01/28/20
--- NOTE | 2020-01-28 13:21 | P.DS_ITS ---
DS: Admitting Diagnosis Admitting Diagnosis Admitting Diagnosis: pyelonephritis DS: Summary Time Spent with Patient Time attestation: Pre-Op diagnosis: left ureteral stone Post-Op Diagnosis: left urerteral stone Patient underwent a cystoscopy, left stent placement, retrograde pyelogram on 01/25/[address] Jayjay Moore. He tolerated the procedure well, was then transferred to recovery in stable condition and to the floor for further observation. He had difficulty with hypotension and fevers for two days following. However, with supportive care and changing to appropriate antibiotics, his fever broke and his BP is now stable. Ok to discharge home today with Nitrofurantoin and LEvsin, he may resume all previous home medications, activity as tolerated, diet as tolerated. HE will follow up next week for a repeat urine culture and KUB then scheduled for stone surgery based on KUB results. Exam Resp: Effort & Inspection: normal respiratory effort Cardio: Rate: regular rate GI: GI Palp: Yes Soft to palpation and No Tenderness to palpation present (GI) : General: Yes no CVA tenderness Extrem: General: no edema DS: Data Data Completed and Pending Labs on day of discharge: Labs from last 24 hours 01/28/20 01/28/20 06:51 05:22 WBC 13.2 H RBC 4.17 L Hgb 12.8 L Hct 35.9 L MCV 86.1 D MCH 30.7 MCHC 35.7 RDW 11.9 Plt Count 177 MPV 10.1 Sodium 134 L Potassium 3.7 Chloride 102 Carbon Dioxide 23 Anion Gap 9 BUN 24 H Creatinine 1.60 H Estim Creat Clear Calc 49 Estimated GFR 44 L Glucose 104 Calcium 8.1 L Preliminary micro results at discharge 01/25/20 20:47 Blood Culture - Preliminary Blood 01/25/20 20:25 Blood Culture - Preliminary Blood Discharge Plan Discharge Attending physician on discharge: Jesús High Consulting providers: Leif Ayala Discharging Clinician: Tabitha York Anticipated Discharge Date/Time: 01/28/20 09:07 Patient Disposition: Home, Self-Care Activity: may shower and no straining Diet: as tolerated Discharge Instructions: Call office to schedule follow up appointment next week to repeat urine culture and obtain a repeat X-Ray to confirm stone placement. Finish antibiotics, call for a fever of >102. Patient Instructions: Antibiotic Form, Cystoscopy (DC) Stand Alone Forms: General Discharge Information Follow-up/Referrals: PHYSICIAN,NEW AUTOS DELIVERY DRIVER [Non-Staff] - Discharge Medications: New hyoscyamine sulfate [Anaspaz] 0.125 mg Tablet,Disintegrating 0.125 mg PO Q4H PRN (Reason: Bladder Spasm) Qty: 14 RF: 0 nitrofurantoin monohyd/m-cryst [Macrobid] 100 mg Capsule 100 mg PO Q12HR 6 Days Qty: 12 RF: 0 Continued testosterone cypionate [Depo-Testosterone] 200 mg/mL oil 200 mg IM [id number] RF: 0 lisinopril 20 mg tablet 20 mg PO DAILY Qty: 90 RF: 3 Date of admission: 01/25/20 23:40 Primary Care Provider: Chelo Singleton Admitting Provider: Jayjay Moore Attending physician on admission: Jayjay Moore Condition: Stable
== END 2020-01-28 10:00 | disposition home or self-care (01) | DRG 661 ==
LOC: ANHED 20:09 → ANHSURGERY 22:28 → ANHIMU 01-26 00:23 → ANH2MED 01-27 10:46 → ANHIMU 02-01 18:06
PROVIDERS: Admitting Provider Urology; Emergency Provider Emergency Medicine; PCP Family Medicine; Visit Provider Nurse Practitioner Adult Health
PROC: 0TCB8ZZ Extirpation of Matter from Bladder, Via Natural or Artificial Opening Endoscopic (ICD-10-PCS; CPT 52352; principal; 2020-01-25 22:15)
DX: N13.6 Pyonephrosis (principal); N17.9 Acute kidney failure, unspecified; Z85.47 Personal history of malignant neoplasm of testis; Z87.891 Personal history of nicotine dependence
CPT/HCPCS: 36415; 74018; 74176; 74420; 80048; 80053; 81001; 83605; 83690; 85014; 85018; 85025; 85027; 87040; 87077; 87086; 87088; 87186; 96361; 96365; 96375; 99285; A9270; C1758; C1769; C2617; J0131; J1956; J2250; J2370; J2405; J2704; J3010; J7030; J7060; J7120; Q9966

== ENCOUNTER 2020-02-04 09:48 | Outpatient (CLI) | payer BC, SELFPAY ==
--- NOTE | ~2020-02-04 | XR_ITS ---
XR abdomen/kub 1V 02/04/2020 10:11 Indication: Left ureteral stone Procedure: KUB Comparison: Comparison to multiple prior studies sequentially, with oldest reviewed study dated 08/08. Findings: Left internal ureteral stent in expected position. Multiple left renal stones. Bowel gas pa ttern is nonobstructive. No acute osseous abnormality. Impression: 1: Left nephrolithiasis. Left internal ureteral stent in expected position. Reviewed, dictated and finalized at location A. H [employer]ST[employer] GRINDER Impression: 1: Left nephrolithiasis. Left internal ureteral stent in expected position.
== END 2020-02-04 09:49 | disposition home or self-care (01) ==
LOC: ANHIMG 09:54
PROVIDERS: Visit Provider Urology
DX: N20.2 Calculus of kidney with calculus of ureter (principal)
CPT/HCPCS: 74018

== ENCOUNTER 2020-02-05 01:40 | Day surgery (SDC) | payer BC, SELFPAY ==
--- NOTE | ~2020-02-05 | XR_ITS ---
XR abdomen/kub 1V 02/05/2020 10:34 Indication: ESWL procedure. Renal stones. Procedure: Supine view of the abdomen Comparison: Comparison to multiple prior studies sequentially, with oldest reviewed study dated 03/14. Findings: Bowel gas pattern is nonobstructive. There is a left internal ureteral stent in expected po sition. There are multiple stones in the lower pole of the left kidney. Bowel pattern is nonobstructi ve. No acute osseous abnormality. Impression: 1: Stable left nephrolithiasis. Reviewed, dictated and finalized at location A. ANICAL SERVICE SPECIALIST Impression: 1: Stable left nephrolithiasis.
[2020-02-05 06:06] VITALS: BP 157/78; PULSE 68; RESP 20; TEMP 36.3; O2SAT 100
[2020-02-05] MEDS: LACTATED RINGERS 1,000 ML 30 ML IV CONT ×2 (06:35→08:00)
--- NOTE | 2020-02-05 06:44 | WPDHPUPDATE1 ---
History and Physical Update Update Date/Time: 02/05/20 06:44 History and Physical has been reviewed, including an updated exam of the patient. There are NO changes in the patient's condition. Risks, benefits, and alternatives have been discussed and questions answered. Patient agrees to proceed with procedure.
--- NOTE | 2020-02-05 06:48 | WPDANESEPPF ---
Anes - Initial Pre Proc Eval Procedure: Operation Date: 02/05/20 07:30 Proposed Procedures p Left Ureteral Extracorporeal Shock Wave Lithotripsy Versus - Jesús High MD s Cystoscopy, Left Ureteroscopy With Left Stone Extraction,Left Retrograde Pyelogram, Left Stone Extraction , Left Stent Exchange - Jesús High MD s Possible Holmium Laser Procedure - Jesús High MD Date/Time: 02/05/20 06:48 Surgeon: Jesús High MD Pre Op Diagnosis: Left Ureteral Stone Patient Data Age: 59 Gender: M Height: Weight: Allergies Allergy/AdvReac Type Severity Reaction Status Date / Time Cephalosporins Allergy Unknown Unknown Verified 01/25/20 20:54 Home Medications Medication Instructions Recorded Confirmed Type testosterone cypionate 200 mg/mL 200 mg IM [id number] ml 07/24/19 01/25/20 History intramuscular oil lisinopril 20 mg tablet 20 mg PO DAILY #90 tablet 08/04/19 01/25/20 Rx hyoscyamine sulfate [Anaspaz] 0.125 mg PO Q4H PRN #14 tablet 01/28/20 Rx nitrofurantoin monohyd/m-cryst 100 mg PO Q12HR 6 Days #12 cap 01/28/20 Rx [Macrobid] Laboratory Tests 02/05/20 06:29 PT Pending INR Pending APTT Pending Patient hx anesthesia problems: none Family hx anesthesia problems: none PMFSH Past Medical History Medical History (Updated 01/26/20 @ 10:07 by Tabitha York APRN) History of chemotherapy Testicular cancer Surgical History Surgical History History of orchiectomy [place] teeth removed Family History Family History Father Diabetes mellitus Hypertension Family history of cardiovascular disease Family history of coronary artery disease Mother Diabetes mellitus Hypertension Family history of cardiovascular disease Family history of coronary artery disease Grandparent Family history of cardiovascular disease Family history of pancreatic cancer Family history of primary malignant neoplasm of liver Other Family history of malignant neoplasm of breast in first degree relative Social History Social History Smoking status: Never smoker Second hand tobacco smoke exposure: No Smoking end date: 02/19/84 Alcohol intake: never Substance use: never Substance use type: does not use Gender identity (if verbalized by the patient): Male Spiritual care concerns: No Agree to blood products: Yes Anes - Eval Final PreProcedure Day of Procedure 02/05/20 06:48 Patient weight: overweight Heart: regular rate and rhythm Lungs: clear to auscultation and normal air movement Airway: Mallampati scale class II Neurological: alert and oriented Last oral intake: >/= 8 hours ASA classification: II Emergent: no Anesthetic plan: proceed Anesthesia type and monitoring: general LMA and standard monitoring Informed Consent: The patient's anesthetic plan and its attendant risks and benefits were discussed with the patient/family/POA. Questions were solicited and answers provided to the satisfaction of the patient/family/POA.
[2020-02-05 06:57] LABS: INR 0.9; Prothrombin Time 13.2 Seconds (11.1-14.7)
[2020-02-05 06:58] LABS: Partial Thromboplastin Time 24.1 SECONDS (22.3-36.8)
[2020-02-05] MEDS: levoFLOXacin 500 MG/D5W 100 ML 500 MG/100 ML BAG 100 MG IVPB (07:17)
[2020-02-05 08:00] VITALS: BP 121/67; PULSE 72; RESP 10; TEMP 36.2; O2SAT 100
--- NOTE | 2020-02-05 08:00 | P.OP_ITS ---
Procedure Note - Detailed Date of procedure: 02/05/20 Pre-op diagnosis: Left Ureteral Stone Left renal stones Procedure performed: Left ESWL Description of procedure: The patient was brought to the operative suite where he was placed in the supine position on the Dornier lithotripsy table. On pre- op KUB, his left proximal ureteral stone has been pushed back into the left kidney with stent placement. The focal point of the lithotripter was placed at a 8mm calculus where 1700 shocks are delivered. An additional 700 shocks are then delivered to a 5mm stone just lateral to that. There appeared to be good fragmentation of the stones. The patient tolerated the procedure well and was taken to the recovery room in good condition. Anesthesia: GLMA Surgeon: Jesús High MD Estimated blood loss (mL): 0 Drains: No Packing: No Pathology: none sent Complications: No immediate complications Condition: stable Disposition: PACU
[2020-02-05 08:15] VITALS: BP 119/76; PULSE 67; RESP 18; O2SAT 100
[2020-02-05 08:29] VITALS: BP 122/73; PULSE 68; RESP 14; O2SAT 100
[2020-02-05 08:32] VITALS: BP 134/74; PULSE 66; RESP 14
[2020-02-05 09:00] VITALS: BP 133/71; PULSE 72; RESP 14
== END 2020-02-05 09:15 | disposition home or self-care (01) ==
PROVIDERS: Visit Provider Urology
PROC: (CPT 50590; principal; 2020-02-05 07:30)
DX: N20.1 Calculus of ureter (principal); Z92.21 Personal history of antineoplastic chemotherapy; Z85.47 Personal history of malignant neoplasm of testis; Z79.890 Hormone replacement therapy; D75.1 Secondary polycythemia; E29.1 Testicular hypofunction
CPT/HCPCS: 50590; 36415; 74018; 85610; 85730; A9270; J1100; J1956; J2250; J2370; J2405; J2704; J3010; J7030; J7120

== ENCOUNTER 2020-02-22 13:00 | Outpatient (CLI) | payer BC, SELFPAY ==
--- NOTE | ~2020-02-22 | XR_ITS ---
XR abdomen/kub 1V DATE: 02/22/2020 13:22 INDICATION: Bilateral kidney stone follow-up TECHNIQUE: AP projection, 2 views COMPARISON: 02/05/2020 KUB FINDINGS: Left internal urinary stent is again noted, unchanged in position since 02/05/2020. However, since 02/05/2020 the multiple well-defined up to approximately 5 mm-7 mm maximal size calcif ications overlying the lower pole of the left kidney are no longer present; instead, there are multip le small faint irregular calcific densities overlying the lower pole and possibly 2 small calcificati ons overlying the very distal left ureter, likely a result of interval lithotripsy. Noncontrast CT ab domen pelvis would be more definitive for evaluation of number and location of urinary tract calculi. The bowel gas pattern is unremarkable, without evidence of obstruction. No visceromegaly is evident. Transitional fifth lumbar vertebra with sacralization and pseudoarthrosis on the right. IMPRESSION: Probable interval lithotripsy on the left; numerous small irregular stone fragments are s uggested overlying the lower pole of left kidney, with 2 possible small stone fragments at the distal left ureter Left internal urinary stent is again noted Reviewed, dictated and finalized at Location A. Reviewed, dictated and finalized at location B. [facility] FLAVORER IMPRESSION: Probable interval lithotripsy on the left; numerous small irregular stone fragments are suggested overlying the lower pole of left kidney, with 2 possible small stone fragments at the distal left ureter Left internal urinary stent is again noted
== END 2020-02-22 13:01 | disposition home or self-care (01) ==
PROVIDERS: Visit Provider Urology
DX: N20.0 Calculus of kidney (principal)
CPT/HCPCS: 74018

== ENCOUNTER 2020-06-03 14:57 | Outpatient (CLI) | payer BC, SELFPAY ==
--- NOTE | ~2020-06-03 | XR_ITS ---
XR abdomen/kub 1V DATE: 06/03/2020 15:18 INDICATION: Bilateral kidney stones TECHNIQUE: AP views COMPARISON: 02/22/2020 KUB FINDINGS: The left internal urinary stent has been removed since 02/22/2020. There are subtle ill-defi michele calcifications overlying the lower pole of the left kidney. No bowel obstruction. Transitional lumbosacral vertebra with sacralization and pseudarthrosis on the right. IMPRESSION: Left nephrolithiasis Reviewed, dictated and finalized at [facility]. Reviewed, dictated and finalized at location A. IMPRESSION: Left nephrolithiasis
== END 2020-06-03 14:58 | disposition home or self-care (01) ==
LOC: ANHIMG 15:06
PROVIDERS: PCP Physician Assistant; Visit Provider Urology
DX: N20.0 Calculus of kidney (principal)
CPT/HCPCS: 74018

== ENCOUNTER → 2022-11-12 16:01 | Outpatient (CLI) | payer OTHER, SELFPAY ==
--- NOTE | ~2022-11-12 | XR_ITS ---
XR abdomen/kub 1V 11/12/2022 16:25 Indication: Bilateral kidney stones Procedure: KUB Comparison: 06/03/2020 Findings: Bowel gas pattern is nonobstructive. There are left renal stones. No acute osseous abnormal ity. Moderate colonic fecal loading. No acute osseous abnormality. Impression: 1: Left nephrolithiasis. Reviewed, dictated and finalized at location L. Impression: 1: Left nephrolithiasis.
== END ==
PROVIDERS: PCP Family Medicine; Visit Provider Urology
DX: N20.0 Calculus of kidney (principal)
CPT/HCPCS: 74018

== ENCOUNTER 2023-07-30 11:53 | Emergency (ER) | payer OTHER, SELFPAY ==
[2023-07-30] VITALS (19 sets, daily range): BP systolic 128–156; BP diastolic 70–90; PULSE 63–71; RESP 16–20; TEMP 36.3; O2SAT 96–100
--- NOTE | ~2023-07-30 | CT_ITS ---
CT abdomen pelvis w con Ordering provider: Terrance Gatica III, DO History: . abdominal pain . Comparison: None. Technique: CT abdomen with IV and without oral contrast. Radiation reduction technique utilized. Findings: VISUALIZED LOWER CHEST: Dependent atelectatic changes. 2 small nodules in the left lower lobe mediall y the largest measures 7.6 cm. UPPER ABDOMINAL ORGANS: Liver: Fatty infiltration. Gallbladder: Normal. Spleen: Normal. Stomach/duodenum: Normal. Pancreas: Normal. Adrenals: Normal. Kidneys: Multiple small cysts in the right kidney. Multiple cysts in the left kidney with the largest measuring 4.5 x 3.8 cm. Multiple stones seen in the left kidney with the largest measuring 0.9 cm. C ollection of cysts in the left kidney lower pole are noted. Follow-up to exclude a cystic mass is adv ised. Thickened wall of the urinary bladder. VISUALIZED BOWEL AND MESENTERY: Slightly dilated small bowel loops in the upper abdomen with no defin ite evidence of obstruction. Follow-up advised. Normal appendix. The bowel is otherwise normal. No fr ee air. Minimal free fluid in the pelvis. No mesenteric lymphadenopathy.Small mesenteric lymph nodes are noted. RETROPERITONEUM: Mild atheromatous disease of the abdominal aorta. No retroperitoneal lymphadenopathy . Small para-aortic lymph nodes. MUSCULOSKELETAL: The superficial soft tissues are normal. Age appropriate degenerative changes of the spine. IMPRESSION: Dilated small bowel loops in the upper abdomen which may indicate a low obstruction.. Follow-up advis ed. Left renal stones. Bilateral renal cysts.Collection of cysts in the left kidney lower pole are noted and measures 4.7 x 5.7 cm. Follow-up to exclude a cystic mass is advised. Thickened wall of the urinary bladder. Further evaluation for cystitis advised. Reviewed, dictated and finalized at location A. IMPRESSION: Dilated small bowel loops in the upper abdomen which may indicate a low obstruc tion.. Follow-up advised. Left renal stones. Bilateral renal cysts.Collection of cysts in the left kidney lower pole are not ed and measures 4.7 x 5.7 cm. Follow-up to exclude a cystic mass is advised. Thickened wall of the urinary bladder. Further evaluation for cystitis advised.
--- NOTE | 2023-07-30 13:26 | ED.ABDPAIN ---
HPI - Abdominal Pain General Chief Complaint: Abdominal Pain Stated Complaint: abdominal pain Time Seen by Provider: 07/30/23 13:16 History of Present Illness HPI narrative: Pt presents with upper abdominal pain off and on for 5 days. Pt says he had more significant discomfort this morning and [facility]. Pt says he improved since then and his pain is now mild but he was told to come to ED to get it checked out. Pt says it all started 5 days ago with vomiting and diarrhea but that only lasted a couple of days but the cramps and pain in upper abdomen have persisted off and on since. Related Data Home Medications Medication Instructions Recorded Confirmed testosterone cypionate 200 mg/mL 200 mg IM [id number] 07/24/19 01/11/23 intramuscular oil (Depo-Testosterone) Allergies Allergy/AdvReac Type Severity Reaction Status Date / Time Cephalosporins Allergy Severe Gastrointestinal Verified 07/30/23 11:53 Upset Review of Systems Review of Systems: All systems reviewed & are unremarkable except as noted in HPI and below PMFSH Past Medical History Medical History History of chemotherapy Hypertension Testicular cancer Surgical History Surgical History History of orchiectomy [place] teeth removed Family History Family History Father Diabetes mellitus Hypertension Family history of cardiovascular disease Family history of coronary artery disease Mother Diabetes mellitus Hypertension Family history of cardiovascular disease Family history of coronary artery disease Grandparent Family history of cardiovascular disease Family history of pancreatic cancer Family history of primary malignant neoplasm of liver Other Family history of malignant neoplasm of breast in first degree relative Social History Social History Smoking status: Never smoker Second hand tobacco smoke exposure: No Smoking end date: 02/19/84 Alcohol intake: never Alcohol use details: Rarely Substance use: never Substance use type: does not use Living arrangements: alone Occupation/Education: occupation Gender identity (if verbalized by the patient): Male Spiritual care concerns: No Agree to blood products: Yes Exam Const: General: healthy appearing and no acute distress Nutritional Appearance: well nourished Orientation/consciousness: patient oriented x3 Limitations: no limitations Resp: Effort & Inspection: normal respiratory effort Auscultation: clear to auscultation bilaterally Cardio: Rate: regular rate Rhythm: regular rhythm GI: GI Palp: Yes Soft to palpation and Yes Tenderness to palpation present (GI) (minimal upper abdomen) Auscultation: normal bowel sounds Back/Spine/Pelvis: Back: no CVA tenderness Skin: General skin exam: normal color Rashes: no rashes Wounds: no wounds Neuro: General: patient oriented x3, moves all extremities, no meningeal signs, no focal motor deficits and CN's II-XI intact bilaterally Speech: normal speech Extrem: General: normal to inspection and no clubbing, cyanosis or edema Psych: Mental Status: mental status grossly normal Affect: normal affect Attitude: cooperative Course Vital Signs Vital signs: Vital Signs Temperature 97.3 F L 07/30/23 11:54 Pulse Rate 71 07/30/23 11:54 Respiratory Rate 16 07/30/23 11:54 Blood Pressure 156/90 H 07/30/23 11:54 Pulse Oximetry 100 07/30/23 11:54 Oxygen Delivery Room Air 07/30/23 11:54 Temperature 97.3 F L 07/30/23 11:54 Pulse Rate 63 07/30/23 15:58 Respiratory Rate 20 07/30/23 15:58 Blood Pressure 134/72 07/30/23 16:31 Pulse Oximetry 96 07/30/23 16:46 Oxygen Delivery Room Air 07/30/23 11:54
[2023-07-30 14:05] LABS: Basophils Percent Auto 0.3 % (0.2-1.2); Eosinophils Absolute Auto 0.1 K/mm3 (0-0.3); Eosinophils Percent Auto 1.1 % (0-4.4); Hematocrit 41.2 % (42.0-52.0); Hemoglobin 14.1 g/dL (14.0-18.0); Immature Granulocyte Absolute 0.04 K/mm3 (0.00-0.031); Immature Granulocyte Percent A 0.5 % (0-0.5); Lymphocytes Absolute Auto 1.86 K/mm3 (0.9-3.2); Lymphocytes Percent Auto 21.1 % (18.3-44.2); Mean Corpuscular HGB Conc 34.2 g/dl (32-36); Mean Corpuscular Hemoglobin 30.8 pg (26-34); Mean Platelet Volume 9.4 fl (7.4-10.4); Monocytes Absolute Auto 0.6 K/mm3 (0.1-0.6); Monocytes Percent Auto 6.7 % (2.6-8.5); Neutrophils Absolute Auto 6.2 K/mm3 (1.3-6.7); Neutrophils Percent Auto 70.3 % (45.5-73.1); Platelet Count Result 235 k/mm3 (150-375); Red Blood Count 4.58 M/mm3 (4.6-6.20); Red Cell Distribution Width 12.2 % (11.5-14.5); White Blood Count 8.8 K/mm3 (4.5-10.0)
[2023-07-30 14:13] LABS: Alanine Aminotransferase 42 U/L (6-50); Albumin Level 4.1 g/dL (3.5-5.1); Alkaline Phosphatase 87 U/L (38-126); Anion Gap 5 mmol/L (4-12); Aspartate Amino Transferase 29 U/L (17-59); Bilirubin,Total 0.9 mg/dL (0.2-1.3); Blood Urea Nitrogen 20 mg/dL (9-20); Calcium 8.8 mg/dL (8.4-10.2); Carbon Dioxide 27 mmol/L (22-30); Chloride 107 mmol/L (98-107); Estimated CRCL calculation 58 ml/min; Estimated Glomerular Filt Rate 56; Glucose 106 mg/dL (65-110); Lipase 112 U/L (23-300); Potassium 4.4 mmol/L (3.4-5.0); Sodium 139 mmol/L (137-145)
[2023-07-30 14:57] LABS: Appearance Urine Clear (Clear); Bacteria Urine None Seen /hpf; Bilirubin Urine Negative (Negative); Blood Urine Negative (Negative); Color Urine Yellow (Yellow); Glucose Urine UA Negative (Negative); Ketones Urine Negative (Negative); Leukocyte Esterase Ur Trace LEU/UL (Negative); Nitrate Urine Negative (Negative); Non Pathogenic Casts 0-2; Protein Urine Negative (Negative); RBC Urine 0-2 /hpf (0-2); Specific Grav Ur 1.023 (1.001-1.035); Squamous Epithelial Cell Urine None Seen /hpf (Few); Urobilinogen Urine 0.2 mg/dL (<2.0); pH Urine 5.5 (5.0-9.0)
[2023-07-30 15:01] LABS: Add Urine Microscopic? YES
== END 2023-07-30 16:52 | disposition home or self-care (01) ==
PROVIDERS: Emergency Provider Emergency Medicine; PCP Family Medicine
DX: K52.9 Noninfective gastroenteritis and colitis, unspecified (principal); N39.0 Urinary tract infection, site not specified; I10 Essential (primary) hypertension; Z85.47 Personal history of malignant neoplasm of testis; Z92.21 Personal history of antineoplastic chemotherapy; Z87.891 Personal history of nicotine dependence; Z90.79 Acquired absence of other genital organ(s); Z79.899 Other long term (current) drug therapy; N20.0 Calculus of kidney; R93.3 Abnormal findings on diagnostic imaging of other parts of digestive tract
CPT/HCPCS: 36415; 74177; 80053; 81001; 83690; 85025; 87077; 87086; 87088; 87181; 99284; Q9967

== ENCOUNTER 2023-08-02 10:04 | Outpatient (CLI) | payer OTHER, SELFPAY ==
--- NOTE | 2023-08-02 10:11 | ECG_ITS ---
Test Date: 2023-08-02 10:25:27 Measurements Intervals [place] Rate: 59 P: 38 ND: 181 QRS: -11 QRSD: 90 T: 3 QT: 397 QTc: 393 Interpretive Statements SINUS BRADYCARDIA No previous ECG available for comparison Electronically Signed On 08-03-2023 15:49:41 CDT by Michael Beck M.D.
== END 2023-08-02 10:05 | disposition home or self-care (01) ==
LOC: ANHIMG 10:05 → ANHCARD 10:07
PROVIDERS: PCP Family Medicine; Visit Provider Physician Assistant Medical
DX: R68.84 Jaw pain (principal)
CPT/HCPCS: 93005

== ENCOUNTER 2023-08-10 08:40 | Outpatient (CLI) | payer OTHER, SELFPAY ==
--- NOTE | ~2023-08-10 | XR_ITS ---
EXAMINATION: XR cervical spine 4-5V DATE: 08/10/2023 09:17 INDICATION: Neck pain. TECHNIQUE: 5 views of cervical spine including standing views were obtained. COMPARISON: None. FINDINGS: There is 2 mm retrolisthesis of C6 on C7. Vertebral body heights are normal. There is mildl y decreased disc height at C4-C5 and C5-C6 and severely decreased disc height at C6-C7. There is mult ilevel mild facet joint osteoarthritis. There is mild central canal stenosis at C5-C6 and C6-C7. No p revertebral soft tissue swelling. IMPRESSION: 1. Severe cervical spondylosis. Reviewed, dictated and finalized at location E.
--- NOTE | ~2023-08-10 | US_ITS ---
EXAMINATION: US renal BI DATE: 08/10/2023 09:25 INDICATION: Renal cyst TECHNIQUE: Multiple ultrasound grayscale images of the kidneys were obtained. COMPARISON: None. FINDINGS: The right kidney measures 11.4 x 5.1 x 5.6 cm. The left kidney measures 12.4 x 5.2 x 6.0 cm. The kidn eys demonstrate normal echogenicity. There are several simple appearing anechoic cysts in the left ki dney measuring up to 3.6 cm. 5.6 x 5.3 x 4.8 cm predominantly solid exophytic mass with internal vasc ular flow on color Doppler and peripheral 3.5 x 3.6 x 2.7 cm cystic component which arises from the l ower pole the left kidney consistent with renal cell carcinoma. There is no hydronephrosis in either kidney. No stones identified. The bladder is normal. IMPRESSION: 1. 5.6 cm complex exophytic mass at the lower pole the left kidney consistent with renal cell carcin marco. Reviewed, dictated and finalized at location A. IMPRESSION: 1. 5.6 cm complex exophytic mass at the lower pole the left kidney consistent with renal cell carcinoma.
== END 2023-08-10 08:41 ==
LOC: MICIMG 08:41
PROVIDERS: PCP Physician Assistant Medical; Visit Provider Physician Assistant Medical
DX: N28.1 Cyst of kidney, acquired (principal); M54.2 Cervicalgia; M47.892 Other spondylosis, cervical region
CPT/HCPCS: 72050; 76775

== ENCOUNTER 2023-08-23 12:26 | Outpatient (CLI) | payer OTHER, SELFPAY ==
--- NOTE | ~2023-08-23 | MR_ITS ---
EXAMINATION: MR renal wo/w con DATE: 08/23/2023 14:17 INDICATION: Neoplasm of uncertain behavior of the left kidney TECHNIQUE: Magnetic resonance imaging (MRI) of the abdomen was performed without and with 20 mL Multi avis intravenous contrast. Sequences included coronal T2-weighted SS-FSE, coronal and axial FS 2D-F IESTA, axial STIR FSE, axial T2-weighted SS-FSE, axial T2-weighted FS SS-FSE, axial diffusion-weighte d SE, axial dual-echo T1-weighted FSPGR, and axial and coronal T1-weighted LAVA. Postcontrast axial T 1-weighted LAVA images were obtained in a time course. Postcontrast coronal T1-weighted LAVA images w ere obtained. COMPARISON: CT dated 07/30/2023 FINDINGS: Heart size is normal. No pericardial or pleural effusion. Diffuse hepatic steatosis with signal dropo ut on opposed phase imaging. 5 mm T2 hyperintense nonenhancing hepatic cyst. Gallbladder is normal. N o intra or extra hepatic biliary ductal dilation. 5.3 x 4.9 x 4.7 cm mixed cystic and solid enhancing mass at the lower pole the left kidney consistent with renal cell carcinoma. There are few scattered bilateral T2 hyperintense nonenhancing renal cysts the largest 2 in the left kidney measuring 4.5 cm and 3.2 cm. There is also a 1.2 cm T1 hyperintense and slightly less T2 hyperintense nonenhancing pr oteinaceous/hemorrhagic cyst at the lower pole of the right kidney. Visualized portions of bowels are normal with no obstruction. No pathologically enlarged abdominal lymphadenopathy. There is normal naima ne marrow signal throughout. IMPRESSION: 1. 5.3 cm mixed cystic and enhancing solid mass at the lower pole the left kidney consistent with kiki al cell carcinoma. Reviewed, dictated and finalized at location B. IMPRESSION: 1. 5.3 cm mixed cystic and enhancing solid mass at the lower pole the left kidn ey consistent with renal cell carcinoma.
== END 2023-08-23 12:27 | disposition home or self-care (01) ==
PROVIDERS: PCP Family Medicine; Visit Provider Urology
DX: D41.02 Neoplasm of uncertain behavior of left kidney (principal)
CPT/HCPCS: 74183; A9577

== ENCOUNTER 2024-05-15 07:45 | Outpatient (CLI) | payer OTHER, SELFPAY ==
--- OUTSIDE RECORDS SUMMARY | 2024-05-15 07:54 | XMS_ITS | Continuity of Care Document ---
Author Name [facility] Organization [facility] Care Team Providers Care Human Resources Compliance Manager Name Role Phone [facility] Unavailable Unavailable Encounters Combined list of: 1) Encounters from Department of Veterans Affairs facilities going backup to the last 18 months, not all VA inpatient encounters are included; 2) Encounters from the Department of Defense facilities going backup to 280 months. Location Location Details Encounter Type Encounter Number Reason For Visit Attending Provider ADM Date DC Date Status Disposition Source [facility] Outpatient Encounter [id number] 09/01 [facility]
--- OUTSIDE RECORDS SUMMARY | 2024-05-15 07:54 | XMS_ITS | Referral Summary ---
Author Organization [facility] Medical Office Building B Address [address] [place] [address] Care Team Providers Care Grab Jack Worker Name Role Phone Danielle Sims MD Primary Care Provider [phone] Jt Bocanegra MD Unavailable [phone] Allergies No known active allergies Medications losartan (COZAAR) 25 mg tablet Take 1 tablet (25 mg total) by mouth every morning Active testosterone cypionate (DEPO-TESTOTERO NE) 200 mg/mL injection Inject 2 mL (400 mg total) into the muscle as instructed every 28 (twenty-eight) days Active Active Problems Problem Noted Date Diagnosed Date Malignant neoplasm of left kidney 12/19/2023 Cancer Staging:Pathologic stage from 11/20/2023:Stage Unknown(pT1b, pNX, cM0) - Signed by Remington Montana MD on 12/19/2023 Renal mass 09/12/2023 Hearing loss 07/24/2018 Assessment & Plan (07/24/2018 5:14 PM CDT): Audiogram (Hearing test) - call with results Tinnitus of both ears 07/24/2018 Assessment & Plan (07/24/2018 9:31 PM CDT): Audiogram (Hearing test) - call with results Cancel out ringing sound with white noise - loud fan, radio Melatonin 3 mg at bedtime Tinnitus Etiology discussed at length and all questions answered regarding Tinnitus, hearing loss Immunizations Immunization Administration Dates Next Due Influenza, Trivalent, Preservative Free, Intramu scular 11/20/2023 Social History Tobacco Use Types Packs/Day Years Used Date Smoking Tobacco: Former Smokeless Tobacco: Never Comments:Smokes socially whi le in service. Alcohol Use Standard Drinks/Week Comments Yes 0 (1 standard drink = 0.6 oz pur e alcohol) rarely AUDIT-C Answer Date Recorded Q1: How often do you have a drink containing alc ohol? Monthly or less 10/11/2023 Q2: How many drinks containi ng alcohol do you have on a typical day when you are drinking? 1 or 2 10/11/2023 Q3: How often do you have si x or more drinks on one occasion? Never 10/11/2023 Personal Safety Answer Date Recorded Have you ever been in or are you currently in a harmful physical or emotional relationship or is someone making you feel afraid or unsafe? 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 Gender Identity Not on file Sexual Orientation Not on file Last Filed Vital Signs Vital Sign Reading Time Taken Comments Blood Pressure 157/86 11/20/2023 2:24 PM CDT Pulse 65 11/20/2023 2:24 PM CDT Temperature 36.3 C (97.3 F) 11/20/2023 2:24 PM CDT Respiratory Rate 18 11/20/2023 2:24 PM CDT Oxygen Saturation 100% 11/20/2023 2:24 PM CDT Inhaled Oxygen Concentration - - Weight 98.3 kg (216 lb 12.8 oz) 11/20/2023 2:24 PM CDT Height 182.9 cm (6') 11/20/2023 2:24 PM CDT Body Mass Index 29.4 11/20/2023 2:24 PM CDT Plan of Treatment Not on file Insurance [facility] CHOICE PLUS Advance Directives For more information, please contact: [phone] * Full Code (Latest Code Status on File) Date Activated Date Inactivated Comments 10/11/2023 4:47 PM 10/12/2023 6:41 PM * Full Code Date Activated Date Inactivated Comments 10/11/2023 4:46 PM 10/11/2023 4:47 PM Care Teams Grab Jack Worker Relationship Specialty Start Date End Date Danielle Sims MD [address] [place] [id number] PCP - General Family Medicine 10/11/23 [place] [address] [facility] [address] [place] [address] Consulting Physician Urology 10/11/23
--- OUTSIDE RECORDS SUMMARY | 2024-05-15 07:54 | XMS_ITS | Clinical Summary ---
Author Organization [facility] Medical Office Building B Address [address] [place] [address] Care Team Providers Care Towel Rolling Machine Operator Name Role Phone Danielle Sims MD Primary Care Provider [phone] Jt Bocanegra MD Unavailable [phone] Allergies No known active allergies Medications [...] Influenza, Trivalent, Preservative Free, Intramu scular 11/20/2023 Surgical History Surgery Date Site/Laterality Comments ORCHIECTOMY 02/18/2007 - 02/18/2008 Left LITHOTRIPSY x3 Medical History Medical History Date Comments Hypertension Kidney stone History of pulmonary embolus (PE) 2007 during chemo for testicular cancer History of testicular cancer Renal mass Social History Tobacco Use Types Packs/Day Years [...] on file 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 Gender Identity Not on file Sexual Orientation Not on file Obstetrics History Last Filed Vital Signs Vital Sign Reading [...] 11/20/2023 2:24 PM CDT Plan of Treatment Health Maintenance Due Date Last Done Comments Colon Cancer Screening-Colonoscopy 1960 Depression Screening 1960 Hepatitis C Screening 1960 Prostate Cancer Screening-PSA 1960 Hepatitis B Screening 1978 Regular Well Visit/Exam 18-64 1978 Pneumococcal vaccine <65 (1 of 2 - PCV) 09/23/1979 Zoster Vaccine (1 of 2) 09/23/1979 Covid-19 Vaccine (5 - 2023-2 5 season) 2023 01/05/2022, 02/05/2021, 06/10/2020, Additional history exists DTaP/Tdap/Td Vaccine (2 - Td or Tdap) 01/15/2025 01/15/2015 Influenza Vaccine Completed 11/20/2023, , 02/05/2021, Additional history exists Insurance [facility] CHO[facility] PLUS [facility] HMO/PPO Address: [address] [address] [place] [address] CIGNA CIGNA Advance Directives For more information, please contact: [phone] * Full Code (Latest Code Status on File) Date Activated Date Inactivated Comments 10/11/2023 4:47 PM 10/12/2023 6:41 PM * Full Code Date Activated Date Inactivated Comments 10/11/2023 4:46 PM 10/11/2023 4:47 PM Care Teams Towel Rolling Machine Operator Relationship Specialty Start Date End Date Danielle Sims MD [address] [place] [address] PCP - General Family Medicine 10/11/23 [place] [address] [facility] [address] [place] [id number] Consulting Physician Urology 10/11/23
--- OUTSIDE RECORDS SUMMARY | 2024-05-15 07:54 | XMS_ITS | Clinical Summary ---
Author Organization [facility] Address [address] [place] [address] Care Team Providers Care Aircraft Load Controller Name Role Phone Danielle Sims MD Primary Care Provider [phone] Social History Tobacco Use Types Packs/Day Years Used Date Smoking Tobacco: Never Assessed Sex and Gender Information Value Date Recorded Sex Assigned at Not on file Legal Sex Male 3:34 PM CDT Gender Identity Not on file Sexual Orientation Not on file Plan of Treatment Health Maintenance Due Date Last Done Comments Colorectal Cancer Screening Colonoscopy (10 Years) 1960 Annual Physical 09/23/1963 Hepatitis C 1978 Zoster Vaccines (1 of 2) 2010 COVID-19 Vaccine (2023-2 5 season) 2023 02/05/2021, 06/10/2020, 05/13/2020 Influenza Adult (#1) 2023 02/05/2021, 10/28/2019, 11/21/2018 DTaP, Tdap and Td Vaccines ( 2 - Td or Tdap) 01/15/2025 01/15/2015 RSV Immunization or 60+ Years (1 - 1-dose 75+ series) 09/23/2035 Meningococcal B Vaccine Aged Out No l onger eligible based on patient's age to complete this topic Meningococcal Vaccine Aged Out No quin lu eligible based on patient's age to complete this topic Pneumococcal Vaccine: Pediatrics (0 to 5 Years) and At-Risk Patients (6 to 64 Years) Aged Out No longer eligible b ased on patient's age to complete this topic RSV Immunizations Under 20 Months Aged Out No longer eligible b ased on patient's age to complete this topic Insurance [employer] Care Teams Aircraft Load Controller Relationship Specialty Start Date End Date Danielle Sims MD [address] [place] [address] PCP - General FAMILY PRACTICE 08/09/21
[2024-05-15 08:28] LABS: INR 0.9; Prothrombin Time 12.4 Seconds (11.1-14.7)
[2024-05-15 08:29] LABS: Partial Thromboplastin Time 23.5 Seconds (22.3-36.8)
== END 2024-05-15 07:46 | disposition home or self-care (01) ==
LOC: ANHSURGERY 07:52
PROVIDERS: PCP Family Medicine; Visit Provider Urology
DX: N20.1 Calculus of ureter (principal); Z01.818 Encounter for other preprocedural examination
CPT/HCPCS: 36415; 85610; 85730; 87086; 87181

== ENCOUNTER 2024-05-22 00:59 | Day surgery (SDC) | payer OTHER, SELFPAY ==
[2024-05-14 14:18] VITALS: BMI 28.5
--- NOTE | 2024-05-14 14:27 | PC.NURSE ---
Report to the Outpatient Waiting Room, entrance under the green pavilion located off [facility], at time _0700_ on date _[id number]_. Planned Procedure Time: _0900_.? Time changes happen often and if your time is changed the preop area will call you the afternoon before. - You and your visitor will be asked to self-screen and do not enter if you have any COVID symptoms. Please call surgeon if you need to reschedule. - A mask is optional within the hospital at this time. Patients may have clear liquids (water, carbonated beverages, clear teas, apple juice) until 3 hours prior to surgery with a maximum of 20 ounces. - No food from midnight until time of surgery and no smoking, or chewing tobacco (or any form of nicotine). No chewing gum, candy or mints. Take only the following medications with a SIP of water on the morning of surgery: ___None____ DO NOT STOP ANY OF YOUR OTHER PRESCRIPTION MEDICATIONS PRIOR TO SURGERY EXCEPT THE FOLLOWING Hold all vitamins and supplements for 3 days per anesthesiologist. Medications to discontinue per physician Date to take last dose Please no make-up, nail canadian, hairspray, perfume, deodorant, or body powder the day of surgery.? No jewelry (including any body piercings) or valuables the day of surgery, leave them at home.? Please take a shower or bath the night before, or the morning of, surgery with an antibacterial soap.? Wear comfortable, loose fitting clothing.? - Jewelry must be removed prior to entering the operating room.? Rings and piercings that are not removed may be cut off. - The hospital will not accept responsibility for valuables.? - Please leave all valuables, including medications, at home the day of surgery. If you are going home after surgery, a licensed patient transportation driver must drive you home.? - NO public transportation without another adult if you receive anesthesia. - We recommend that an adult stay with you for 24 hours following discharge. - We also recommend that you do not drive, make important decision, drink alcoholic beverages, or take any drugs that were not prescribed by your health care provider for at least 24 hours after your discharge time. Follow any additional instructions given to you from your surgeon. Telephone instructions given to __Robert__and asked if any additional questions and then verbalized understanding. Patient advised to call surgeon office or pre surgery nurse liaison [phone] if any additional questions.
[2024-05-22] VITALS (8 sets, daily range): BP systolic 100–147; BP diastolic 53–85; PULSE 54–64; RESP 13–20; TEMP 36.3–36.4; O2SAT 99–100
--- NOTE | ~2024-05-22 | XR_ITS ---
XR abdomen/kub 1V 05/22/2024 06:42 INDICATION: Left renal stone TECHNIQUE: KUB COMPARISON: 11/12/2022 FINDINGS: Bowel gas pattern is normal. There is no evidence of free air, mass, organomegaly, ascites or obstruction. There is a 7 mm left renal stone. The bones appear intact. IMPRESSION: 1: Left nephrolithiasis. Reviewed, dictated and finalized at location A. IMPRESSION: 1: Left nephrolithiasis.
--- OUTSIDE RECORDS SUMMARY | 2024-05-22 01:01 | XMS_ITS | Referral Summary ---
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 Gender Identity Not on file Sexual Orientation [...] Plan of Treatment Not on file Insurance [facility] CHOICE PLUS [facility] H[facility]/PPO Address: [address] [address] [place] [address] Advance Directives For more information, please contact: [phone] * Full Code (Latest Code Status on File) Date Activated Date Inactivated Comments 10/11/2023 4:47 PM 10/12/2023 6:41 PM * Full Code Date Activated Date Inactivated Comments 10/11/2023 4:46 PM 10/11/2023 4:47 PM Care Teams Casting House Worker Relationship Specialty Start Date End Date Danielle Sims MD [address] [place] [id number] PCP - General Family Medicine 10/11/23 [place] [address] [address] [place] [address] Consulting Physician Urology 10/11/23
--- OUTSIDE RECORDS SUMMARY | 2024-05-22 01:01 | XMS_ITS | Continuity of Care Document ---
Author Name [facility] Organization [facility] Care Team Providers Care Associate Quality Engineer Name Role Phone [facility] Unavailable Unavailable Encounters [...] ADM Date DC Date Status Disposition Source [facility] Outpatient Encounter [id number] 09/01 [facility]
--- OUTSIDE RECORDS SUMMARY | 2024-05-22 01:01 | XMS_ITS | Clinical Summary ---
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 Gender Identity Not on file Sexual Orientation [...] 11/20/2023, , 02/05/2021, Additional history exists Insurance [facility] CHOICE PLUS CIGNA CIGNA Advance Directives For more information, please contact: [phone] * Full Code (Latest Code Status on File) Date Activated Date Inactivated Comments 10/11/2023 4:47 PM 10/12/2023 6:41 PM * Full Code Date Activated Date Inactivated Comments 10/11/2023 4:46 PM 10/11/2023 4:47 PM Care Teams Overhead Crane Truck Loader Relationship Specialty Start Date End Date Danielle Sims MD [address] [place] [address] PCP - General Family Medicine 10/11/23 [place] [address] [facility] [address] [place] [address] Consulting Physician Urology 10/11/23
--- OUTSIDE RECORDS SUMMARY | 2024-05-22 01:01 | XMS_ITS | Clinical Summary ---
Author Organization [facility] Address [address] [place] [address] Care Team Providers Care Risk Adjustment Specialist Name Role Phone Danielle Sims MD Primary Care Provider [phone] Social History Tobacco Use Types Packs/Day Years [...] (2023-2 5 season) 2023 02/05/2021, 06/10/2020, 05/13/2020 DTaP, Tdap and Td Vaccines ( 2 [...] complete this topic Insurance [employer] Care Teams Risk Adjustment Specialist Relationship Specialty Start Date End Date Danielle Sims MD [address] [place] [address] PCP - General FAMILY PRACTICE 08/09/21
--- NOTE | 2024-05-22 06:30 | WPDHPUPDATE1 ---
History and Physical Update Update Date/Time: 05/22/24 06:30 History and Physical has been reviewed, including an updated exam of the patient. There are NO changes in the patient's condition. Risks, benefits, and alternatives have been discussed and questions answered. Patient agrees to proceed with procedure.
[2024-05-22] MEDS: LACTATED RINGERS 1,000 ML 30 ML IV CONT (07:15)
--- NOTE | 2024-05-22 07:29 | P.PNAN_ITS ---
Anes - Initial Pre Proc Eval Procedure: Operation Date: 05/22/24 09:00 Proposed Procedures p Left Extracorporeal Shock Wave Lithotripsy - Jesús High MD Date/Time: 05/22/24 07:29 Surgeon: Jesús High MD Pre Op Diagnosis: Left renal stone Patient Data Age: 63 Gender: M Height: 1.83 m Weight: 95.5 kg Allergies Allergy/AdvReac Type Severity Reaction Status Date / Time No Known Allergies Allergy Verified 05/22/24 06:49 Home Medications ?Medication ?Instructions ?Recorded ?Confirmed ?Type testosterone cypionate 200 mg/mL 200 mg IM [id number] 07/24/19 05/22/24 History intramuscular oil (Depo-Testosterone) losartan 25 mg tablet 25 mg PO DAILY #90 tabs 07/16/23 05/22/24 Rx Patient hx anesthesia problems: none Family hx anesthesia problems: none Results Review: All pre-operative results and documents have been reviewed as part of the pre- operative evaluation. [facility] Past Medical History Medical History Hypertension History of chemotherapy Testicular cancer Surgical History Surgical History History of orchiectomy [place] teeth removed Family History Family History Father Diabetes mellitus Hypertension Family history of cardiovascular disease Family history of coronary artery disease Mother Diabetes mellitus Hypertension Family history of cardiovascular disease Family history of coronary artery disease Grandparent Family history of cardiovascular disease Family history of pancreatic cancer Family history of primary malignant neoplasm of liver Other Family history of malignant neoplasm of breast in first degree relative Social History Social History Smoking status: Never smoker Second hand tobacco smoke exposure: No Smoking end date: 02/19/84 Alcohol intake: current Drinks per week: 1 Alcohol use details: Rarely Substance use: never Substance use type: does not use Living arrangements: with family Occupation/Education: occupation Gender identity (if verbalized by the patient): Male Spiritual care concerns: No Agree to blood products: Yes Anes - Eval Final PreProcedure Day of Procedure 05/22/24 07:29 Patient weight: overweight Lungs: normal air movement Airway: Mallampati scale class II and special considerations (Upper perm plate. ) Neurological: alert and oriented Last oral intake: >/= 8 hours ASA classification: II Emergent: no Anesthetic plan: proceed Anesthesia type and monitoring: general LMA and standard monitoring Results Review: All pre-operative results and documents have been reviewed as part of the pre- operative evaluation. Hx of testicular/renal ca both treated. HTN w good exercise tolerance. No cp or sob w walking 1-2 fos. Informed Consent: The patient's anesthetic plan and its attendant risks and benefits were discus sed with the patient/family/POA. Questions were solicited and answers provided to the satisfaction of the patient/family/POA.
[2024-05-22] MEDS: ceFAZolin 2 GM/D5W 50 ML 2 GM/50 ML BAG IVPB (07:32)
--- NOTE | 2024-05-22 07:49 | W.PM.PROC2 ---
Procedure Note - Detailed Date of Procedure 05/22/24 Pre-op Diagnosis Left renal stone Post-op Diagnosis Same Procedure Performed Left ESWL Surgeon Jesús High MD Anesthesia General Description of Procedure The patient was brought to the operative suite where he was placed in the supine position on the Dornier lithotripsy table. The focal point of the lithotripter was placed at a 8mm lightly calcified left renal calculus. A total of 2500 shocks were delivered at a power setting of 4. There appeared to be good fragmentation of the stone. The patient tolerated the procedure well and was taken to the recovery room in good condition. Drains No Packing No Pathology None sent Condition Stable
== END 2024-05-22 09:38 | disposition home or self-care (01) ==
PROVIDERS: PCP Family Medicine; Visit Provider Urology
PROC: (CPT 50590; principal; 2024-05-22 09:00)
DX: N20.0 Calculus of kidney (principal)
CPT/HCPCS: 50590; 74018; J0690; J1100; J2003; J2250; J2405; J2704; J3010; J7120

== ENCOUNTER 2024-06-02 15:07 | Outpatient (CLI) | payer OTHER, SELFPAY ==
--- NOTE | ~2024-06-02 | XR_ITS ---
Supine and upright views of the abdomen Clinical history: Kidney stones COMPARISON: 05/22/2024 Findings: Bowel gas pattern is nonspecific. No evidence for obstruction or free air. Possible tiny le ft lower pole renal stones. Osseous structures are intact. Impression: Possible tiny left lower pole renal stones. Reviewed, dictated and finalized at location . Impression: Possible tiny left lower pole renal stones.
--- OUTSIDE RECORDS SUMMARY | 2024-06-02 16:17 | XMS_ITS | Clinical Summary ---
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 Gender Identity Not on file Sexual [...] 11/20/2023, , 02/05/2021, Additional history exists Insurance [facility] CHOICE PLUS [facility] H[facility]/PPO Address: [address] [address] [place] [address] [employer] CIG[employer] Advance Directives For more information, please contact: [phone] * Full Code (Latest Code Status on File) Date Activated Date Inactivated Comments 10/11/2023 4:47 PM 10/12/2023 6:41 PM * Full Code Date Activated Date Inactivated Comments 10/11/2023 4:46 PM 10/11/2023 4:47 PM Care Teams Cooky Packer Relationship Specialty Start Date End Date Danielle Sims MD [address] [place] [address] PCP - General Family Medicine 10/11/23 [place] [id number] [facility] [address] [place] [id number] Consulting Physician Urology 10/11/23
--- OUTSIDE RECORDS SUMMARY | 2024-06-02 16:17 | XMS_ITS | Clinical Summary ---
Author Organization [facility] Address [address] [place] [id number] Care Team Providers Care Photoengraving Sketch Maker Name Role Phone Danielle Sims MD Primary Care Provider [phone] Social History Tobacco Use Types Packs/Day Years [...] 5 Years) and At-Risk Patients (6 to 49 Years) Aged Out No longer eligible b ased on patient's age to complete this topic RSV Immunizations Under 20 Months Aged Out No longer eligible b ased on patient's age to complete this topic Insurance [employer] Care Teams Photoengraving Sketch Maker Relationship Specialty Start Date End Date Danielle Sims MD [address] [place] [address] PCP - General FAMILY PRACTICE 08/09/21
--- OUTSIDE RECORDS SUMMARY | 2024-06-02 16:17 | XMS_ITS | Referral Summary ---
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 CHOICE PLUS [facility] HMO/PPO Address: [address] [address] [place] [address] Advance Directives For more information, please contact: [phone] * Full Code (Latest Code Status on File) Date Activated Date Inactivated Comments 10/11/2023 4:47 PM 10/12/2023 6:41 PM * Full Code Date Activated Date Inactivated Comments 10/11/2023 4:46 PM 10/11/2023 4:47 PM Care Teams Ceramic Plater Relationship Specialty Start Date End Date Danielle Sims MD [address] [place] [id number] PCP - General Family Medicine 10/11/23 [place] [address] [facility] [address] [place] [id number] Consulting Physician Urology 10/11/23
--- OUTSIDE RECORDS SUMMARY | 2024-06-02 16:17 | XMS_ITS | Continuity of Care Document ---
Author Name [facility] Organization [facility] Care Team Providers Care Travel Occupational Therapist Name Role Phone [facility] Unavailable Unavailable Encounters [...] ADM Date DC Date Status Disposition Source [facility] Outpatient Encounter [id number] 5 09/01 [facility]
== END 2024-06-02 15:08 | disposition home or self-care (01) ==
PROVIDERS: PCP Family Medicine; Visit Provider Urology
DX: N20.0 Calculus of kidney (principal)
CPT/HCPCS: 74018

== ENCOUNTER 2024-10-26 10:48 | Outpatient (CLI) | payer OTHER, SELFPAY ==
--- NOTE | ~2024-10-26 | XR_ITS ---
Abdominal radiograph(s) INDICATION: Renal stone COMPARISON: 06/02/2024 TECHNIQUE: 2 view supine abdomen FINDINGS: Lung bases clear. Scattered colonic gas and stool. Small bowel scattered gas. Air-fluid levels cannot be assessed on supine projection. No evidence of organomegaly. No abnormal abdominal calcifications. Pelvic phleboliths. No acute bony abnormality. IMPRESSION: 1. No acute findings. 2. No nephroureteral calculi identified. Previously reported possible left renal stones no longer seen. Reviewed, dictated and finalized at location R. IMPRESSION: 1. No acute findings. 2. No nephroureteral calculi identified. Previously reported possible left kiki al stones no longer seen.
--- OUTSIDE RECORDS SUMMARY | 2024-10-26 11:15 | XMS_ITS | Clinical Summary ---
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 Gender Identity Not on file Sexual Orientation [...] of 2) 09/23/1979 Covid-19 Vaccine (5 - 2024-2 6 season) 2024 01/05/2022, 02/05/2021, 06/10/2020, Additional history exists Influenza Vaccine (#1) 2024 , 01/05/2022, 02/05/2021, Additional history exists DTaP/Tdap/Td Vaccine (2 - Td or Tdap) 01/15/2025 01/15/2015 Insurance [employer] Advance Directives For more information, please contact: [phone] * Full Code (Latest Code Status on File) Date Activated Date Inactivated Comments 10/11/2023 4:47 PM 10/12/2023 6:41 PM * Full Code Date Activated Date Inactivated Comments 10/11/2023 4:46 PM 10/11/2023 4:47 PM Care Teams Bank Examiner Relationship Specialty Start Date End Date Danielle Sims MD PCP - General Family Medicine 10/11/23 [place] [id number] [facility] [address] [place] [id number] Consulting Physician Urology 10/11/23
== END 2024-10-26 10:49 | disposition home or self-care (01) ==
PROVIDERS: PCP Family Medicine; Visit Provider Urology
DX: N20.0 Calculus of kidney (principal)
CPT/HCPCS: 74018

== ENCOUNTER 2024-11-27 15:15 | Outpatient (CLI) | payer OTHER, SELFPAY ==
--- NOTE | ~2024-11-27 | XR_ITS ---
EXAMINATION: XR chest 2V, 11/27/2024 15:20 CDT HISTORY: renal cell carcinoma COMPARISON: No comparisons available. Technique: 2 views obtained. Findings: The lungs are clear, no effusion. No pneumothorax. Heart is normal size. Mediastinal and hilar contours are within normal limits. Bony thorax no acute abnormality. Impression: No acute cardiopulmonary abnormality. Reviewed, dictated and finalized at location P. Impression: No acute cardiopulmonary abnormality.
--- NOTE | ~2024-11-27 | CT_ITS ---
EXAMINATION: CT abdomen pelvis wo/w con DATE: 11/27/2024 16:02 INDICATION: Renal cell carcinoma. TECHNIQUE: Computed tomography (CT) of the abdomen and pelvis was performed without and with 100 mL Omnipaque 350 intravenous contrast. Automated exposure control and iterative reconstruction technique were employed. The dose-length product was 1672.10 mGy-cm. COMPARISON: CT abdomen and pelvis 07/30/2023 FINDINGS: The visualized portions of the lung bases posterior mild atelectasis and mild chronic lung disease. There are chronic nodules in left lower lobe measuring up to 6 mm, likely benign. A calcified left lung nodule is consistent with old granulomatous disease. No pleural effusion. The heart size is normal. No pericardial effusion. There is diffuse hepatic steatosis. The gallbladder, spleen, pancreas, and adrenal glands are normal. There are cysts in the kidneys measuring up to 4.5 cm on the left. There are changes of partial left nephrectomy. There is a 1.5 cm hemorrhagic cyst in right kidney. There is a 12 mm hemorrhagic cyst in left kidney. There is no urolithiasis. The prostate is mildly enlarged. There is diffuse bladder wall thickening, likely secondary to chronic outlet obstruction. There is a right inguinal hernia containing fat. There are no dilated loops of bowel. The appendix is normal. There are no pathologically enlarged lymph nodes. There is no free intraperitoneal fluid. There is mild thoracic spondylosis and moderate lumbar spondylosis. IMPRESSION: 1. Partial left nephrectomy. No evidence of malignancy. Reviewed, dictated and finalized at location E.
[2024-11-27 15:50] LABS: Estimated Glomerular Filt Rate 56
== END 2024-11-27 15:16 | disposition home or self-care (01) ==
LOC: MICIMG 15:15
PROVIDERS: PCP Urology; Visit Provider Urology
DX: C64.2 Malignant neoplasm of left kidney, except renal pelvis (principal)
CPT/HCPCS: 71046; 74178; Q9967